=== PATIENT | male | born 1940 | race Caucasian/White ===

== ENCOUNTER 2020-06-02 11:58 | Emergency (ER) | payer MEDICARE, OTHER ==
--- OUTSIDE RECORDS SUMMARY | 2020-06-02 12:01 | XMS REPORT | Continuity of Care Document ---
:1940 Author Organization [facility] t Address [address] [place] [address] Care Team Providers Name Role Phone Radha Montero MD Attending Clinician Esvin MORENO Attending Clinician Unavailable Only, Test Attending Clinician Unavailable Killian Bradford MD Attending Clinician Problems This patient has no known problems. Allergies, Adverse Reactions, Alerts This patient has no known allergies or adverse reactions. Medications This patient has no known medications. Procedures This patient has no known procedures. Encounters Start End Encounter Admission Attending Care Care Encounter Source Date/Time Date/Time Type Type Clinicians Facility Department ID 2020-02-20 2020-02-20 Emergency Kylah, TRAUMA [id number] 13:58[facility]00 [id number] 2020-01-06 2020-01-06 Letter Kaylin Mcallister [id number] 00:00:00 00:00:00 (Out) [facility] [id number] [facility] [id number] 2020-01-05 2020-01-05 Laboratory Only, Pcp [facility] [id number] 09:27:09 09:42:09 Only Test PRIMARY [id number] CARE [id number] RAYSHAWN [id number] 2019-09-18 2019-09-19 Emergency Kaale, TRAUMA [id number] 20:29:21 01:19:00 [facility] [id number] Results This patient has no known results.
[2020-06-02 12:34] LABS: Absolute Lymphocytes (CBC) 0.7 K/uL (0.7-4.9); Basophils % 1.2 % (0-1.3); Hematocrit 42.7 % (39.6-49.0); Lymphocytes % 5.2 % (15.3-44.8); MPV 9.6 fL (7.6-11.3)
[2020-06-02 12:49] LABS: Potassium 4.4 mmol/L (3.5-5.1)
[2020-06-02] MEDS ORDERED: Ringers Lactate 1,000 ML IV ONE (12:53)
[2020-06-02 13:10] LABS: White Blood Cell Scan OK (OK)
[2020-06-02 13:11] LABS: Blood Morphology Comment NOT SEEN (NOT SEEN); Platelet Estimate ADEQ
--- NOTE | 2020-06-02 14:07 | EDPHYS ---
Physician Documentation [facility] Name: Eliseo Oro Age: 80 yrs Sex: Male : 1940 Arrival Date: 06/02/2020 Time: 12:03 Bed 26 Private MD: ED Physician Morgan Jane HPI: 06/02 13:06 This 80 yrs old Male presents to ER via EMS with complaints of Heat Exposure. 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 + generalized weakness, sweating, no syncope/chest pain/sob/abd pain. Feels better with fluids. . Onset: The symptoms/episode began/occurred just prior to arrival. Severity of symptoms: At their worst the symptoms were moderate in the emergency department the symptoms have improved. The patient has not experienced similar symptoms in the past. The patient has not recently seen a physician. Historical: - Allergies: 12:26 No Known Allergies; iw - Home Meds: 12:26 Lisinopril Oral [Active]; gabapentin oral oral [Active]; iw - PMHx: 12:26 Hypertension; neck pain; knee pain; iw - PSHx: 12:26 Knee surgery; iw - Immunization history:: Adult Immunizations not up to date. - Social history:: Smoking status: Patient/guardian denies using tobacco, the patient reports quitting approximately 5 years ago. - Family history:: not pertinent. - Hospitalizations: : No recent hospitalization is reported. ROS: 13:06 Constitutional: Negative for fever, chills, and weight loss, Eyes: Negative for injury, rn pain, redness, and discharge, Neck: Negative for injury, pain, and swelling, Cardiovascular: Negative for chest pain, palpitations, and edema, Respiratory: Negative for shortness of breath, cough, wheezing, and pleuritic chest pain, Abdomen/GI: Negative for abdominal pain, nausea, vomiting, diarrhea, and constipation, Back: Negative for injury and pain, : Negative for injury, bleeding, discharge, and swelling, MS/Extremity: Negative for injury and deformity, Skin: Negative for injury, rash, and discoloration, Neuro: Negative for headache, numbness, tingling, and seizure. Exam: 13:06 Constitutional: This is a well developed, well nourished patient who is awake, alert, rn and in no acute distress. Shirt soaked with sweat, no active diaphoresis Head/Face: Normocephalic, atraumatic. Eyes: Pupils equal round and reactive to light, extra-ocular motions intact. Lids and lashes normal. Conjunctiva and sclera are non-icteric and not injected. Cornea within normal limits. Periorbital areas with no swelling, redness, or edema. ENT: dry MM Cardiovascular: Regular rate and rhythm. No pulse deficits. Respiratory: No increased work of breathing, no retractions or nasal flaring. Abdomen/GI: soft, non-tender, no masses Skin: Warm, dry, no cyanosis MS/ Extremity: Pulses equal, no cyanosis. Neurovascular intact. Full, normal range of motion. Equal circumference. Neuro: Awake and alert, GCS 15, oriented to person, place, time, and situation. Cranial nerves II-XII grossly intact. Motor strength 5/5 in all extremities. Sensory grossly intact. Cerebellar exam normal. Vital Signs: 12:23 BP 133 / 82; Pulse 83; Resp 16; Temp 98.9; Pulse Ox 98% on R/A; Weight 104.33 kg; iw Height 5 ft. 7 in. (170.18 cm); 13:37 BP 133 / 82; Pulse 83; Resp 15; Pulse Ox 96% on R/A; zb 14:30 BP 97 / 61; Pulse 84; Resp 16; Pulse Ox 97% on R/A; zb 12:23 Body Mass Index 36.02 (104.33 kg, 170.18 cm) iw MDM: 12:05 Patient medically screened. rn 14:06 Differential Diagnosis heat exhaustion, dehydration, near syncope. Data reviewed: vital rn signs, nurses notes, lab test result(s), EKG, and as a result, I will discharge patient. Counseling: I had a detailed discussion with the patient and/or guardian regarding: the historical points, exam findings, and any diagnostic results supporting the discharge/admit diagnosis, lab results, the need for outpatient follow up, to return to the emergency department if symptoms worsen or persist or if there are any questions or concerns that arise at home. Response to treatment: the patient's symptoms have markedly improved after treatment, and as a result, I will discharge patient. Special discussion: I discussed with the patient/guardian in detail that at this point there is no indication for admission to the hospital. It is understood, however, that if the symptoms persist or worsen the patient needs to return immediately for re-evaluation. ED course: No acute abnormalities in blood or ECG, pt feels like over-did it, lack of other findings agree with that, normal neuro exam, denies pain, no ischemia on ecg, trop neg, and sable vitals with improvement of symptoms after fluids. . 06/02 12:07 Order name: CBC with Diff; Complete Time: 13:35 rn 06/02 12:07 Order name: Basic Metabolic Panel; Complete Time: 13:35 rn 06/02 12:07 Order name: CK; Complete Time: 13:35 rn 06/02 12:16 Order name: Troponin (emerg Dept Use Only); Complete Time: 13:35 rn 06/02 12:40 Order name: CBC Smear Scan; Complete Time: 13:35 EDDE 06/02 12:07 Order name: IV Start; Complete Time: 12:27 rn 06/02 12:07 Order name: EKG; Complete Time: 12:07 rn 06/02 12:07 Order name: EKG - Nurse/Tech; Complete Time: 12:19 rn Administered Medications: 12:37 Drug: Lactated Ringers Solution 1000 ml Route: IV; Rate: 500 ml/hr; Site: left iw antecubital; 15:02 Follow up: Response: No adverse reaction; IV Status: Completed infusion; IV Intake: zb 1000ml Disposition: 06/02/20 14:07 Discharged to Home. Impression: Heat fatigue, transient, Dehydration. - Condition is Stable. - Discharge Instructions: Dehydration, Adult, Heat Exhaustion Information. - Medication Reconciliation Form, Thank You Letter, Antibiotic Education, Prescription Opioid Use form. - Follow up: Private Physician; When: As needed; Reason: Recheck today's complaints, Re-evaluation by your physician. - Problem is new. - Symptoms have improved. Signatures: Dispatcher [employer] EDJustine Alarcon RN RN iw Nieto, Roman, MD MD rn Brown, JOSH Shah RN Corrections: (The following items were deleted from the chart) 15:02 14:07 06/02/2020 14:07 Discharged to Home. Impression: Heat fatigue, transient; zb Dehydration. Condition is Stable. Forms are Medication Reconciliation Form, Thank You Letter, Antibiotic Education, Prescription Opioid Use. Follow up: Private Physician; When: As needed; Reason: Recheck today's complaints, Re-evaluation by your physician. Problem is new. Symptoms have improved. rn
--- NOTE | 2020-06-02 14:07 | ER ---
Nurse's Notes [facility] Name: Eliseo Oro Age: 80 yrs Sex: Male : 1940 Arrival Date: 06/02/2020 Time: 12:03 Bed 26 Private MD: Diagnosis: Heat fatigue, transient;Dehydration Presentation: 06/02 12:05 Chief complaint: EMS states: was out working in the yard, got overheated, felt like he iw was going to pass out. Coronavirus screen: At this time, the client does not indicate any symptoms associated with coronavirus-19. Ebola Screen: Patient negative for fever greater than or equal to 101.5 degrees Fahrenheit, and additional compatible Ebola Virus Disease symptoms Patient denies exposure to infectious person. Patient denies travel to an Ebola-affected area in the 21 days before illness onset. No symptoms or risks identified at this time. 12:05 Method Of Arrival: EMS: [facility] iw 12:27 Initial Sepsis Screen: Does the patient meet any 2 criteria? No. Patient's initial iw sepsis screen is negative. Does the patient have a suspected source of infection? No. Patient's initial sepsis screen is negative. Risk Assessment: Do you want to hurt yourself or someone else? Patient reports no desire to harm self or others. Onset of symptoms was June 02, 2020. 12:27 Acuity: CAPRI 3 iw Historical: - Allergies: 12:26 No Known Allergies; iw - Home Meds: 12:26 Lisinopril Oral [Active]; gabapentin oral oral [Active]; iw - PMHx: 12:26 Hypertension; neck pain; knee pain; iw - PSHx: 12:26 Knee surgery; iw - Immunization history:: Adult Immunizations not up to date. - Social history:: Smoking status: Patient/guardian denies using tobacco, the patient reports quitting approximately 5 years ago. - Family history:: not pertinent. - Hospitalizations: : No recent hospitalization is reported. Screenin:26 Abuse screen: Denies threats or abuse. Denies injuries from another. Nutritional iw screening: No deficits noted. Tuberculosis screening: No symptoms or risk factors identified. Fall Risk IV access (20 points). Assessment: 13:08 General: Appears in no apparent distress. uncomfortable, Behavior is calm, cooperative, zb appropriate for age, Reports fatigue for 0-12 hours. Pain: Complains of pain in bilateral knees Pain does not radiate. Pain currently is 8 out of 10 on a pain scale. Quality of pain is described as burning, aching, Pain began years ago. Neuro: Level of Consciousness is awake, alert, obeys commands, Oriented to person, place, time, situation. Cardiovascular: Capillary refill < 3 seconds in bilateral fingers Patient's skin is warm and dry. Respiratory: Airway is patent Respiratory effort is even, unlabored, Respiratory pattern is regular, symmetrical. GI: Abdomen is round. : No signs and/or symptoms were reported regarding the genitourinary system. EENT: No signs and/or symptoms were reported regarding the EENT system. Derm: Skin is intact, is healthy with good turgor, Skin is dry, Skin is normal, Skin temperature is warm. Musculoskeletal: Range of motion: intact in all extremities. 13:50 Reassessment: ECP at bedside discussing care with patient. zb 14:11 Reassessment: d/c pending IV fluid completion. zb 15:01 Reassessment: IV fluids complete. d/c instructions given. gait steady and even. zb Vital Signs: 12:23 BP 133 / 82; Pulse 83; Resp 16; Temp 98.9; Pulse Ox 98% on R/A; Weight 104.33 kg; iw Height 5 ft. 7 in. (170.18 cm); 13:37 BP 133 / 82; Pulse 83; Resp 15; Pulse Ox 96% on R/A; zb 14:30 BP 97 / 61; Pulse 84; Resp 16; Pulse Ox 97% on R/A; zb 12:23 Body Mass Index 36.02 (104.33 kg, 170.18 cm) iw ED Course: 12:03 Patient arrived in ED. iw 12:05 Morgan Jane MD is Attending Physician. rn 12:26 Maintain EMS IV. Dressing intact. Good blood return noted. Site clean \T\ dry. Gauge \T\ iw site: 20 LAC. 12:27 Triage completed. iw 12:28 Justine Suresh, JOSH is Primary Nurse. iw 13:11 Patient has correct armband on for positive identification. Pulse ox on. NIBP on. zb quality assurance monitor final on. Door closed. Noise minimized. 15:01 No provider procedures requiring assistance completed. IV discontinued, intact, zb bleeding controlled, No redness/swelling at site. Pressure dressing applied. 15:02 Arm band placed on. zb Administered Medications: 12:37 Drug: Lactated Ringers Solution 1000 ml Route: IV; Rate: 500 ml/hr; Site: left iw antecubital; 15:02 Follow up: Response: No adverse reaction; IV Status: Completed infusion; IV Intake: zb 1000ml Intake: 15:02 IV: 1000ml; Total: 1000ml. zb Outcome: 14:07 Discharge ordered by . rn 15:01 Discharged to home ambulatory. zb 15:01 Condition: stable 15:01 Discharge instructions given to patient, Instructed on discharge instructions, follow up and referral plans. Demonstrated understanding of instructions, follow-up care. 15:02 Patient left the ED. zb Signatures: Justine Suresh RN RN Morgan Jane MD MD rn Brown, Zipporah, RN RN zb
[2020-06-02 15:53] VITALS: TEMP 98.9
[2020-06-02 15:56] VITALS: BP 97/61; O2SAT 97
--- NOTE | 2020-06-03 08:52 | EKG ---
Test Date: 2020-06-02 Test Time: 12:16:19 Commissary Manager: GOMEZ MEASUREMENT RESULTS: Intervals: Rate: 86 MD: 182 QRSD: 76 QT: 376 QTc: 449 [place]: P: 70 MD: 182 QRS: 56 T: 49 INTERPRETIVE STATEMENTS: Normal sinus rhythm Low voltage QRS Borderline ECG Compared to ECG 07/03/2014 11:37:16 Low QRS voltage now present Electronically Signed On 06-03-20 08:50:11 CDT by Richar Iyer
== END 2020-06-02 15:02 | disposition home or self-care (01) ==
LOC: ER 11:58
DX: E86.0 Dehydration (principal); I10 Essential (primary) hypertension; Z87.891 Personal history of nicotine dependence
CPT/HCPCS: 85025; 80048; 36415; 82550; 84484; J7120; 93005; 96360; 96361; 99284

== ENCOUNTER 2021-10-13 13:34 | Emergency (ER) | payer OTHER ==
--- OUTSIDE RECORDS SUMMARY | 2021-10-13 13:39 | XMS REPORT | Continuity of Care Document ---
:1940 Author Organization [facility] t Address [address] [place] [address] Care Team Providers Name Role Phone [facility], [facility] Primary Care Physician Unavailable AMANDA ANTUNEZ Attending Clinician Unavailable Amanda Antuenz MD Attending Clinician Vaccine, [facility] Attending Clinician Unavailable Unknown, Attending Attending Clinician Unavailable ARAVIND NOEL Attending Clinician Unavailable KATIE FOX Attending Clinician Unavailable Booker Montero MD Attending Clinician Kaylin Mcallister RN Attending Clinician Unavailable NATALIYA GREEN Attending Clinician Unavailable Only, Pcp Test Attending Clinician Unavailable Nataliya Green MD Attending Clinician Jayy Bradford MD Attending Clinician AMANDA ANTUNEZ Admitting Clinician Unavailable Payers Payer Name Policy Type Policy Number Effective Date Expiration Date S murray MEDICARE PART A \\T\\ [id number] 2007 B 00:00:00 [facility] [id number] 2007 MEDICARE SUPPLEMENT 00:00:00 Problems Condition Condition Condition Status Onset Resolution Last Treating Co mments Source Name Details Category Date Date Treatment Clinician Date Abdominal Abdominal Disease Active Overview: Univers cramping cramping -06 Formattin ity of 00:00: g of this [place] 00 note Medical might be Branch different from the original. Added automatic ally from request for surgery [id number] Stool Stool Disease Active Overview: Univer s guaiac guaiac 06-01 Formattin ity of positive positive 00:00: g of this [place] 00 note Medical might be Branch different from the original. Added automatic ally from request for surgery [id number] Tubular Tubular Disease Active Overview: Univ ers adenoma of adenoma of 06-01 Formattin ity of colon colon 00:00: g of this [place] 00 note Medical might be Branch different from the original. Added automatic ally from request for surgery [id number] Alternatin Alternatin Disease Active Overview : Univers g g 06-01 Formattin ity of constipati constipati 00:00: g of this [place] on and on and 00 note Medical diarrhea diarrhea might be Bran ch different from the original. Added automatic ally from request for surgery [id number] Black Black Disease Active Overview: Univer s tarry tarry 06-01 Formattin ity of stools stools 00:00: g of this [place] 00 note Medical might be Branch different from the original. Added automatic ally from request for surgery [id number] Incontinen Incontinen Disease Active Overview : Univers ce of ce of 06-01 Formattin ity of feces, feces, 00:00: g of this [place] unspecifie unspecifie 00 note Me dical d fecal d fecal might be Branch incontinen incontinen different ce type ce type from the original. Added automatic ally from request for surgery [id number] Morbid Morbid Disease Active Univers obesity obesity 2-01 ity of with body [place] body 00:[place] mass index mass index 00 Me dical of of Branch 40.0-49.9 40.0-49.9 Morbid Morbid Disease Active Univers obesity obesity 2-01 ity of with body with body 00:[place] mass index mass index 00 Me dical of 50 or of 50 or Branch higher higher Atypical Atypical Disease Active Unive rs chest pain chest pain 8-19 it y of 00:00: [place] 00 Medical Branch HARDY HARDY Disease Active Univers (dyspnea (dyspnea 7-14 ity of on on 00:00: [place] exertion) exertion) 00 Medi conor Branch Essential Essential Disease Active Uni vers hypertensi hypertensi 7-13 it y of on on 00:00: [place] 00 Medical Branch 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 Surgery on left hand Obesity Obesity Disease Active Overview: Univ ers 4-23 Formattin ity of 00:00: g of this [place] 00 note Medical might be Branch different from the original. 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 knees Coronary Coronary Disease Active Overview: Un darell atheroscle atheroscle Formattin ity of rosis rosis g of this [place] note Medical might be Branch different from the original. ?"light heart attack" 20 yrs [id number] Diagnosis Term Pres[facility] Program Director Utility Allergic Allergic Disease Active Overview: Un darell rhinitis rhinitis Formattin ity of g of this [place] note Medical might be Branch different from the original. ICD10 Diagnosis Term Pres[facility] Program Director Utility Allergies, Adverse Reactions, Alerts Allergy Allergy Status Severity Reaction(s) Onset Inactive Treating Comm ents Source Name Type Date Date Clinician NO KNOWN Drug Active Univers ALLERGIE Class ity of S [facility] Social History Social Habit Start Date Stop Date Quantity Comments Source History [facility] o f Alcohol Frequency [facility] edical Branch History [facility] o f Alcohol Std Drinks [facility] History [facility] o f Alcohol Binge [place] Medic al Branch Exposure to Not sure University of SARS-CoV-2 (event) [facility] Alcohol intake 2021-03-06 2021-03-06 .14 /d University of 00:00:00 00:00:00 [facility] Alcohol Comment 2016-03-27 2016-03-27 Occasional Universit y of 00:00:00 00:00:00 Drinker [facility] Cigarettes smoked 2015-09-08 2015-09-08 Univers ity of current (pack per 00:00:00 00:00:00 ) - Reported Branch Cigarette 2015-09-08 2015-09-08 University of pack-years 00:00:00 00:00:00 [facility] Tobacco use and 2015-09-08 2015-09-08 Never used Universit y of exposure 00:00:00 00:00:00 [facility] History of tobacco 2013-09-07 Smoker Univer sity of use 00:00:00 [facility] Sex [birth year] At [birth year] Universit y of 00:00:00 00:00:00 [facility] Smoking Status Start Date Stop Date Source Former smoker 2015-09-08 00:00:00 2015-09-08 00:00:00 Universi ty of [facility] Medications Ordered Filled Start Stop Current Ordering Indication Dosage Frequency Signature Comments Components Source Medication Medication Date Date Medication? Clinician (SIG) Name Name iopamidol 2021- No [id number] 100mL 100 mL, Univers (ISOVUE 03-06 Intravenou ity o f 370-500 mL) 15:45: 15:45 s, ONCE, 1 [place] injection 00 :00 dose, On Medica l 100 mL 03/06/21 Branch at 0945, Routine proCHLORper 2021- No 10mg 10 mg, IV Univers azine 03-06 Piggyback, ity of (COMPAZINE) 14:30: 14:00 [place]CE[place] 1 [place] 10 mg in 00 :00 dose, On Medical NaCl 0.9% 03/06/21 Bran ch (NS) at 0830, piggyback 50 mL ketorolac 2021- No 15mg 15 mg, Unive rs tromethamin 03-06 Slow IV ity of e (TORADOL) 14:30: 14:30 Push, [place] injection 00 :00 ONCE, 1 Medical 15 mg dose, On Branch 1/9/22 at 0830, [place] morpHINE No 4mg 4 mg, Slow Un darell injection 4 03-06 IV Push, ity of mg 14:30: 13:41 ONCE, 1 [place] 00 :00 dose, On Medical 03/06/21 Branch at 0830, STAT cyclobenzap Yes [id number] 10mg Take 1 Univers rine 10 mg 1-09 tablet by ity of tablet 00:00: mouth 3 [place] 00 (three) Medical times Branch daily. HYDROcodone 2021- No [id number] 1{tbl} Take 1-2 Univers -acetaminop 03-06-17 tablets by i ty of hen 5-325 00:00: 05:59 mouth [place] mg tablet 00 :00 every 6 Medical (six) Branch hours as needed for Pain (scale 1-3) for up to 7 days. Indication s: acute pain predniSONE 2021- No [id number] 60mg Take 3 Univers 20 mg 03-06-15 tablets by ity of tablet 00:00: 05:59 mouth [place] 00 :00 every Medical morning Branch for 5 days. HYDROcodone 2019-02 No 1{tbl} 1 tablet, Univers -acetaminop 2-26 12-25 Oral, ity of hen (NORCO 00:30: 23:43 ONCE, 1 [place] as 5) 5-325 mg 00 :00 dose, Fri Med ical tablet 1 02/20/20 Branch tablet at 1830, [place] ceFAZolin 2019-02- No 1000mg 1,000 mg, Univers (ANCEF) 2-25 12-25 IV ity of 1,000 mg in 22:00: 22:06 Piggyback, [place] NaCl 0.9% 00 :00 ONCE, 1 Medical (NS) 50 mL dose, Fri Bran ch MINI-BAG 02/20/20 at 1600, 50 mL
Reas on for Anti-Infec tive: Empiric Therapy for Suspected Infection< br>Empiric Therapy Site: Skin / Soft tissue
Duration of therapy: 72 hours doxycycline 2019-02- No [id number] 100mg Take 1 Univers hyclate 100 04-22- capsule by i ty of mg capsule 00:00: 05:59 mouth 2 [place] as 00 :00 (two) Medical times Branch daily for 10 days. traMADol 2020-0 2020- No 50mg 50 mg, Univer s (ULTRAM) 09-18 07-24 Oral, ity of tablet 50 06:45: 05:58 ONCE, 1 [place] mg 00 :00 dose, Fri Medical 09/19/19 at Branch 0145, [place] predniSONE 2020-0 2020- No 40mg 40 mg, Univ ers (DELTASONE) 09-18 07-24 Oral, ity of tablet 40 06:45: 05:58 ONCE, 1 [place] mg 00 :00 dose, Fri Medical 09/19/19 at Branch 0145, [place] lidocaine 5 2020-0 Yes [id number] Apply one Univers % (700 7-24 patch to ity of mg/patch) 00:00: most [place] patch 00 painful Medical area for Branch 12 hours a day, as needed for pain. PHARMACIST : dispense one box lidocaine 5 2020-0 Yes [id number] Apply one Univers % (700 7-24 patch to ity of mg/patch) 00:00: most [place] patch 00 painful Medical area for Branch 12 hours a day, as needed for pain. PHARMACIST : dispense one box lidocaine 5 2020-0 Yes [id number] Apply one Univers % (700 7-24 patch to ity of mg/patch) 00:00: most [place] patch 00 painful Medical area for Branch 12 hours a day, as needed for pain. PHARMACIST : dispense one box lidocaine 5 2020-0 Yes [id number] Apply one Univers % (700 7-24 patch to ity of mg/patch) 00:00: most [place] patch 00 painful Medical area for Branch 12 hours a day, as needed for pain. PHARMACIST : dispense one box lidocaine 5 2020-0 Yes [id number] Apply one Univers % (700 7-24 patch to ity of mg/patch) 00:00: most [place] patch 00 painful Medical area for Branch 12 hours a day, as needed for pain. PHARMACIST : dispense one box lidocaine 5 2020-0 Yes [id number] Apply one Univers % (700 7-24 patch to ity of mg/patch) 00:00: most [place] patch 00 painful Medical area for Branch 12 hours a day, as needed for pain. PHARMACIST : dispense one box predniSONE 2020-0 2020- No [id number] 40mg Take 2 Univers 20 mg 09-18 tablets by ity of tablet 00:00: 04:59 mouth [place] 00 :00 every Medical morning Branch for 7 days. traMADol 50 2020-0 2020- No [id number] 50mg Take 1 Uni vers mg tablet 09-18 tablet by ity of 00:00: 04:59 mouth [place] 00 :00 every 6 Medical (six) Branch hours as needed (pain) for up to 7 days. Indication s: acute pain nebivolol 2017-02 Yes 2.5mg Take 1 Unive rs 2.5 mg 0-15 tablet by ity of tablet 00:00: mouth [place] 00 daily. Medical Branch nebivolol 2017-02 Yes 2.5mg Take 1 Unive rs 2.5 mg 0-15 tablet by ity of tablet 00:00: mouth [place] 00 daily. Medical Branch nebivolol 2017-02 Yes 2.5mg Take 1 Unive rs 2.5 mg 0-15 tablet by ity of tablet 00:00: mouth [place] 00 daily. Medical Branch nebivolol 2017-02 Yes 2.5mg Take 1 Unive rs 2.5 mg 0-15 tablet by ity of tablet 00:00: mouth [place] 00 daily. Medical Branch nebivolol 2017-02 Yes 2.5mg Take 1 Unive rs 2.5 mg 0-15 tablet by ity of tablet 00:00: mouth [place] 00 daily. Medical Branch nebivolol 2017-02 Yes 2.5mg Take 1 Unive rs 2.5 mg 0-15 tablet by ity of tablet 00:00: mouth [place] 00 daily. Medical Branch clonidine Yes .1mg Take 0.1 Univ ers HCl 9-28 mg by ity of (CLONIDINE 02:37: mouth as [place] as ORAL) 04 needed. Medical Branch clonidine Yes .1mg Take 0.1 Univ ers HCl 9-28 mg by ity of (CLONIDINE 02:37: mouth as [place] ORAL) 04 needed. Medical Branch clonidine Yes .1mg Take 0.1 Univ ers HCl 9-28 mg by ity of (CLONIDINE 02:37: mouth as [place] ORAL) 04 needed. Medical Branch clonidine Yes .1mg Take 0.1 Univ ers HCl 9-28 mg by ity of (CLONIDINE 02:37: mouth as [place] ORAL) 04 needed. Medical Branch clonidine Yes .1mg Take 0.1 Univ ers HCl 9-27 mg by ity of (CLONIDINE 21:37: mouth as [place] ORAL) 04 needed. Medical Branch clonidine Yes .1mg Take 0.1 Univ ers HCl 9-27 mg by ity of (CLONIDINE 21:37: mouth as [place] as ORAL) 04 needed. [facility] Branch ALPRAZOLAM Yes Take by Univ ers (XANAX 9-27 mouth. ity of ORAL) 13:58: [address] ALPRAZOLAM Yes Take by Univ ers (XANAX 9-27 mouth. ity of ORAL) 13:58: [address] ALPRAZOLAM Yes Take by Univ ers (XANAX 9-27 mouth. ity of ORAL) 13:58: [place] [facility] ALPRAZOLAM Yes Take by Univ ers (XANAX 9-27 mouth. ity of ORAL) 13:58: [address] ALPRAZOLAM Yes Take by Univ ers (XANAX 9-27 mouth. ity of ORAL) 08:58: [place] [facility] ALPRAZOLAM Yes Take by Univ ers (XANAX 9-27 mouth. ity of ORAL) 08:58: [address] lisinopril 2015-0 Yes 20mg Take 1 Unive rs (PRINIVIL) 8-15 tablet by ity of 20 mg 00:00: mouth 2 [place] tablet 00 (two) Medical times Branch daily. lisinopril 2015-0 Yes 20mg Take 1 Unive rs (PRINIVIL) 8-15 tablet by ity of 20 mg 00:00: mouth 2 [place] tablet 00 (two) Medical times Branch daily. lisinopril 2015-0 Yes 20mg Take 1 Unive rs (PRINIVIL) 8-15 tablet by ity of 20 mg 00:00: mouth 2 [place] tablet 00 (two) Medical times Branch daily. lisinopril 2016-0 Yes 20mg Take 1 Unive rs (PRINIVIL) 8-15 tablet by ity of 20 mg 00:00: mouth 2 [place] tablet 00 (two) Medical times Branch daily. lisinopril 2016-0 Yes 20mg Take 1 Unive rs (PRINIVIL) 8-15 tablet by ity of 20 mg 00:00: mouth 2 [place] tablet 00 (two) Medical times Branch daily. lisinopril 2016-0 Yes 20mg Take 1 Unive rs (PRINIVIL) 8-15 tablet by ity of 20 mg 00:00: mouth 2 [place] tablet 00 (two) Medical times Branch daily. Immunizations Ordered Filled Immunization Date Status Comments [facility] e Immunization Name Name SARS-COV-2 COVID-19 2021-02-21 Completed Unive rsity of PFIZER VACCINE 00:00:00 [facility] SARS-COV-2 COVID-19 2021-02-21 Completed Unive rsity of PFIZER VACCINE 00:00:00 [facility] Pfizer COVID-19 Pfizer COVID-19 2021-02-21 Completed Vaccine Vaccine 00:00:00 SARS-COV-2 COVID-19 2020-04-28 Completed Unive rsity of PFIZER VACCINE 00:00:00 [facility] SARS-COV-2 COVID-19 2020-04-28 Completed Unive rsity of PFIZER VACCINE 00:00:00 [facility] Pfizer COVID-19 Pfizer COVID-19 2020-04-28 Completed Vaccine Vaccine 00:00:00 SARS-COV-2 COVID-19 2020-04-06 Completed Unive rsity of PFIZER VACCINE 00:00:00 [facility] SARS-COV-2 COVID-19 2020-04-06 Completed Unive rsity of PFIZER VACCINE 00:00:00 [facility] Pfizer COVID-19 Pfizer COVID-19 2020-04-06 Completed Vaccine Vaccine 00:00:00 Pneumococcal 7 2007-06-24 Completed University of Conjugate, PCV7 00:00:00 [place] Med ical (Prevnar7) Branch Pneumococcal 7 2007-06-24 Completed University of Conjugate, PCV7 00:00:00 [place] Med ical (Prevnar7) Branch Pneumococcal 7 2007-06-24 Completed University of Conjugate, PCV7 00:00:00 [place] Med ical (Prevnar7) Branch Pneumococcal 7 2007-06-24 Completed University of Conjugate, PCV7 00:00:00 [place] Med ical (Prevnar7) Branch Pneumococcal 7 2007-06-24 Completed University of Conjugate, PCV7 00:00:00 [place] Med ical (Prevnar7) Branch Pneumococcal 7 2007-06-24 Completed University of Conjugate, PCV7 00:00:00 [place] Med ical (Prevnar7) Branch Vital Signs Vital Name Observation Time Observation Value Comments Source Systolic blood 2021-03-06 14:00:00 142 mm[Hg] Univer sity of pressure [place] [facility] Diastolic blood 2021-03-06 14:00:00 76 mm[Hg] Unive rsity of pressure [place] [facility] Heart rate 2021-03-06 14:00:00 68 /min Universi ty of [place] [facility] Body temperature 2021-03-06 14:00:00 36.33 Rachael Univ ersity of [place] [facility] Respiratory rate 2021-03-06 14:00:00 18 /min Univ ersity of [place] [facility] Oxygen saturation in 2021-03-06 14:00:00 98 /min University of Arterial blood by [place] [employer] conor Pulse oximetry Branch Body weight 2021-03-06 13:14:00 113.853 kg Universi ty of [place] [facility] BMI 2021-03-06 13:14:00 39.31 kg/m2 Universi ty of [place] [facility] Systolic blood 2020-02-21 01:49:13 144 mm[Hg] Univer sity of pressure [place] [facility] Diastolic blood 2020-02-21 01:49:13 77 mm[Hg] Unive rsity of pressure [place] [facility] Heart rate 2020-02-21 01:49:13 69 /min Universi ty of [place] [facility] Body temperature 2020-02-21 01:49:13 35.72 Rachael Univ ersity of [place] [facility] Respiratory rate 2020-02-21 01:49:13 18 /min Univ ersity of [place] [facility] Oxygen saturation in 2020-02-21 01:49:13 96 /min University of Arterial blood by [facility] conor Pulse oximetry Branch Body weight 2020-02-20 19:56:00 113.399 kg Universi ty of [place] [facility] BMI 2020-02-20 19:56:00 39.16 kg/m2 Universi ty of [place] [facility] Systolic blood 2020-02-21 01:49:13 144 mm[Hg] Univer sity of pressure [place] [facility] Diastolic blood 2020-02-21 01:49:13 77 mm[Hg] Unive rsity of pressure [place] [facility] Heart rate 2020-02-21 01:49:13 69 /min Universi ty of [place] [facility] Body temperature 2020-02-21 01:49:13 35.72 Rachael Univ ersity of [place] [facility] Respiratory rate 2020-02-21 01:49:13 18 /min Univ ersity of [place] [facility] Oxygen saturation in 2020-02-21 01:49:13 96 /min University of Arterial blood by [facility] [place] Pulse oximetry Branch Body weight 2020-02-20 19:56:00 113.399 kg Universi ty of [place] [facility] BMI 2020-02-20 19:56:00 39.16 kg/m2 Universi ty of [place] [facility] Systolic blood 2019-09-19 06:16:00 154 mm[Hg] Univer sity of pressure [place] [facility] Diastolic blood 2019-09-19 06:16:00 80 mm[Hg] Unive rsity of pressure [place] [facility] Heart rate 2019-09-19 06:16:00 70 /min Universi ty of [place] [facility] Respiratory rate 2019-09-19 06:16:00 16 /min Univ ersity of [place] [facility] Oxygen saturation in 2019-09-19 06:16:00 97 /min University of Arterial blood by [facility] [place] Pulse oximetry Branch Body temperature 2019-09-19 01:28:00 37.06 Rachael Univ ersity of [place] [facility] Body weight 2019-09-19 01:28:00 108.863 kg Universi ty of [place] [facility] BMI 2019-09-19 01:28:00 37.59 kg/m2 Universi ty of [place] [facility] Systolic blood 2019-09-19 06:16:00 154 mm[Hg] Univer sity of pressure [place] [facility] Diastolic blood 2019-09-19 06:16:00 80 mm[Hg] Unive rsity of pressure [place] [facility] Heart rate 2019-09-19 06:16:00 70 /min Universi ty of [place] [facility] Respiratory rate 2019-09-19 06:16:00 16 /min Univ ersity of [place] [facility] Oxygen saturation in 2019-09-19 06:16:00 97 /min University of Arterial blood by [facility] [place] Pulse oximetry Branch Body temperature 2019-09-19 01:28:00 37.06 Rachael Univ ersity of [place] [facility] Body weight 2019-09-19 01:28:00 108.863 kg Universi ty of [place] [facility] BMI 2019-09-19 01:28:00 37.59 kg/m2 Universi ty of [place] [facility] Procedures Procedure Date / Time Performing Clinician Source Performed CT ABDOMEN PELVIS W 2021-03-06 14:34:05 Amanda Antunez [facility] CONTRAST [facility] URINALYSIS 2021-03-06 14:18:00 Amanda Antunez [facility] LIPASE 2021-03-06 13:43:00 Amanda Antunez [facility] COMP. METABOLIC PANEL 2021-03-06 13:43:00 Aamnda Antunez [facility] ([id number]) [facility] CBC WITH DIFF 2021-03-06 13:43:00 Amanda Antunez [facility] SARS-COV-2 COVID-19 2021-02-21 15:21:00 [facility],IM Name [facility] (PFIZER) CBC WITH DIFF 2020-02-20 23:48:00 Booker Montero [facility] US LOWER EXTREMITY VEIN 2020-02-20 22:07:03 Booker Montero [facility] WITH COMPRESSION LEFT Medical Br anch (ONLY FOR RULE OUT DVT) BASIC METABOLIC PANEL 2020-02-20 21:25:00 Booker Montero [facility] (NA, K, CL, CO2, [facility] Branch GLUCOSE, BUN, CREATININE, CA) XR FOOT 3+ VW LEFT 2020-02-20 21:08:03 Booker Mnotero [facility] CBC WITH DIFF 2019-09-19 03:33:00 Ian Huggins [facility] TROPONIN I 2019-09-19 03:32:00 Ian Huggins [facility] COMP. METABOLIC PANEL 2019-09-19 03:32:00 Ian Huggins [facility] ([id number]) [facility] N-TERMINAL PRO-BNP 2019-09-19 03:32:00 Ian Huggins [facility] XR CHEST 2 VW 2019-09-19 02:13:08 Ian Huggins [facility] EKG-12 LEAD 2019-09-19 01:45:35 Ian Huggins [facility] Encounters Start End Encounter Admission Attending Care Care Encounter Source Date/Time Date/Time Type Type Clinicians Facility Department ID 2020-12-25 Emergency [facility] [id number] Univers 13:08:32 ity of [facility] 2020-12-24 Emergency [facility] [id number] Univers 08:32:25 ity of [facility] 2021-03-06 2021-03-06 Emergency X TULIO, [facility] ERT [id number] Univers 07:16:00 09:29:00 AMANDA ity of [facility] 2021-03-06 2021-03-06 Emergency Antunez, [place] [id number] Univers 07:16:00 09:29:00 Amanda CENTER [id number] ity of [id number] [place] [id number] [facility] 014 Branch 2021-02-21 2021-02-21 Imm/Inj Vaccine, [facility] [id number] Univers 09:40:00 09:50:00 Visit Unknown, Attending [place] [id number] ity of PEDIAT[place]IC [id number] [id number] [facility] 332 Branch 2021-02-21 2021-02-21 Outpatient R [facility] [id number] Univers 09:40:00 09:40:00 [id number] ity [facility] 2021-02-21 2021-02-21 Outpatient Dusty NOEL, [facility] [id number] Univers 09:40:00 09:27:25 ARAVIND [facility] 2021-02-21 2021-02-21 Outpatient GCCOVIDV GCCOVID[facility] [id number] GCCOVID 00:00:00 00:00:00 V 2020-04-28 2020-04-28 Outpatient Dusty FOX, [facility] [id number] Univers 09:00:00 09:00:00 KATIE ity [facility] 2020-04-28 2020-04-28 Outpatient GCCOVIDV GCCOVIDV [id number] GCCOVID 00:00:00 00:00:00 V 2020-04-06 2020-04-06 Outpatient [facility] [id number] Univers 08:50:00 08:50:00 [id number] ity of [facility] 2020-04-06 2020-04-06 Outpatient GCCOVIDV GCCOVIDV [id number] GCCOVID 00:00:00 00:00:00 V 2020-02-20 2020-02-20 Emergency Kylah, [place] [id number] 13:58:00 19:58:00 Booker E CENTER [id number] 2020-02-20 2020-02-20 Emergency Kylah, TRAUMA [id number] Univers 13:58:00 19:58:00 Booker E CENTER [id number] ity [facility].[place] [id number] [address] 2020-01-06 2020-01-06 Letter Kaylin Mcallister [id number] Univers 00:00:00 00:00:00 (Out) MYA [id number] it y of [facility] [id number] [place] as [id number] [address] 2020-01-06 2020-01-06 Letter Kaylin Mcallister [id number] 00:00:00 00:00:00 (Out) MYA [id number] [facility] [id number] 2020-01-05 2020-01-05 Outpatient R [facility] [id number] Univers 09:45:00 09:45:00 [id number] ity [facility] 2020-01-05 2020-01-05 Outpatient R JAZMIN [facility] [id number] Univers 09:45:00 09:45:00 NATALIYA ity [facility] 2020-01-05 2020-01-05 Laboratory Only, Pcp [facility] [id number] 09:27:09 09:42:09 Only Test PRIMARY 350.1.13.10 CARE 4.2.7.2.686 PAVILLION [id number] 2020-01-05 2020-01-05 Laboratory Only, Pcp Test [facility] 1.2.840. 114 [id number] Univers 09:27:09 09:42:09 Only Nataliya Green PRIMARY 350.1.13.10 [place] [id number] Oh dical [address] Branch 2019-09-18 2019-09-19 Emergency [place], TRAUMA 1.2.630.053 [id number] 20:29:21 01:19:00 [facility] 350.1.13.10 4.2.7.2.686 [id number] [id number] 2019-09-18 2019-09-19 Emergency [place], TRAUMA 1.2.212.409 [id number] Univers 20:29:21 01:19:00 [facility] 350.1.13.10 [id number] [place] [address] Branch Results Test Description Test Time Test Comments Results Result Comments Source COMP. METABOLIC PANEL (50548) 2021-03-06 14:06:49 Test Item Value Reference Range Interpretation Comme nts NA (test code = 3241996501) 137 mmol/L 135-145 K (test code = 3103168865) 4.8 mmol/L 3.5-5.0 CL (test code = 7616129137) 106 mmol/L 98-108 CO2 TOTAL (test code = 4887578771) 26 mmol/L 23-31 AGAP (test code = 0973475155) 2-16 BUN (test code = 2036649125) 20 mg/dL 7-23 GLUCOSE (test code = 8828819156) 132 mg/dL 70-110 H CREATININE (test code = 1.26 mg/dL 0.60-1.25 H 2432363454) TOTAL BILI (test code = 0.6 mg/dL 0.1-1.8 5878287271) CALCIUM (test code = 7150866306) 8.4 mg/dL 8.6-10.6 L T PROTEIN (test code = 6558622861) 6.3 g/dL 6.3-8.2 ALBUMIN (test code = 3562623315) 3.7 g/dL 3.5-5.0 ALK PHOS (test code = 0762884327) 83 U/L 34-122 ALTv (test code = 1742-6) 17 U/L 5-50 AST(SGOT) (test code = 4305674716) 24 U/L 13-40 eGFR (test code = 0822923495) mL/min/1.73m2 QUINTON (test code = QUINTON) Association of Glomerular Filtration Rate (GFR) and Staging of Kidney Disease* + +-------- + ------+| GFR (mL/min/1.73 m2) ?| With Kidney Damage ?| ?Without Kidney Damage+ +-- + +| ?>90 ?| ?Stage one ?| ? Normal ?+ +------- + -------+| ?60-89 ?| ?Stage two ?| ? Decreased GFR ? + +-------- + ------+| ?30-59 ?| ?Stage three ?| ? Stage three ? + +-------- + ------+| ?15-29 ?| ?Stage four ? | ? Stage four ?+ +------- + -------+| ?<15 (or dialysis) ? ?| ?Stage five ? | ? Stage five ?+ +------- + -------+ *Each stage assumes the associated GFR level has been in effect for at least three months. ?Stages 1 to 5, with or without kidney disease, indicate chronic kidney disease. Notes: Determination of stages one and two (with eGFR >59mL/min/1.73 m2) requires estimation of kidney damage for at least three months as defined by structural or functional abnormalities of the kidney, manifested by either:Pathological abnormalities or Markers of kidney damage (including abnormalities in the composition of the blood or urine or abnormalities in imaging tests). Lab Interpretation (test code = Abnormal 22234-6) [facility]06[facility]49 Test Item Value Reference Range Interpretation Comments LIPASE (test code = 0611785721) 63 U/L 0-220 Lab Interpretation (test code = Normal 85957-9) [facility] WITH [id number] 14:00:48 Test Item Value Reference Range Interpretation Comments WBC (test code = See_Comment [Automated 2590-2) message] The sy stem which generated this result transmitted reference range : 4.20 - 10.70 10*3/?L. The reference range was not used to interpret this result as normal/abnormal . RBC (test code = See_Comment [Automated 789-8) message] The sy stem which generated this result transmitted reference range : 4.26 - 5.52 10*6/?L. The reference range was not used to interpret this result as normal/abnormal . HGB (test code = 13.6 g/dL 12.2-16.4 718-7) HCT (test code = 41.5 % 38.4-49.3 4544-3) MCV (test code = 89.4 fL 81.7-95.6 787-2) MCH (test code = 29.3 pg 26.1-32.7 785-6) MCHC (test code = 32.8 g/dL 31.2-35.0 786-4) RDW-SD (test code = 46.9 fL 38.5-51.6 54258-4) RDW-CV (test code = 14.4 % 12.1-15.4 788-0) PLT (test code = See_Comment [Automated 777-3) message] The sy stem which generated this result transmitted reference range : 150 - 328 10*3/ ?L. The reference r tomasa was not used to interpret this result as normal/abnormal . MPV (test code = 10.9 fL 9.8-13.0 39303-2) NRBC/100 WBC (test See_Comment [Automat ed code = 5933456060) message] The system which generated this result transmitted reference range : 0.0 - 10.0 /100 WBCs. The refer ence range was not u sed to interpret th is result as normal/abnormal . NRBC x10^3 (test code <0.01 See_Comment [Auto mated = 7980457009) message] The s ystem which generated this result transmitted reference range : 10*3/?L. The reference range was not used to interpret this result as normal/abnormal . GRAN MAT (NEUT) % 77.8 % (test code = 770-8) IMM GRAN % (test code 0.40 % = 3314144654) LYMPH % (test code = 12.0 % 736-9) MONO % (test code = 6.9 % 5905-5) EOS % (test code = 2.4 % 713-8) BASO % (test code = 0.5 % 706-2) GRAN MAT x10^3(ANC) 5.71 10*3/uL 1.99-6.95 (test code = 1930702873) IMM GRAN x10^3 (test 0.03 10*3/uL 0.00-0.06 code = 4358222854) LYMPH x10^3 (test code 0.88 10*3/uL 1.09-3.23 L = 731-0) MONO x10^3 (test code 0.51 10*3/uL 0.36-1.02 = 742-7) EOS x10^3 (test code = 0.18 10*3/uL 0.06-0.53 711-2) BASO x10^3 (test code 0.04 10*3/uL 0.01-0.09 = 704-7) Lab Interpretation Abnormal (test code = 16664-0) [facility] WITH [id number] 00:06:00 Test Item Value Reference Range Interpretation Comments WBC (test code = See_Comment [Automated message] 6690-2) The system [employer] generated this result transmitted ref erence range: 4.20 - 1 0.70 10*3/?L. The re ference range was not u sed to interpret this result as normal/abnor mal. RBC (test code = See_Comment [Automated message] 789-8) The system [employer] generated this result transmitted ref erence range: 4.26 - 5 .52 10*6/?L. The re ference range was not u sed to interpret this result as normal/abnor mal. HGB (test code = 13.9 g/dL 12.2-16.4 718-7) HCT (test code = 43.6 % 38.4-49.3 4544-3) MCV (test code = 92.6 fL 81.7-95.6 787-2) MCH (test code = 29.5 pg 26.1-32.7 785-6) MCHC (test code = 31.9 g/dL 31.2-35 786-4) RDW-SD (test code 48.1 fL 38.5-51.6 = 22510-1) RDW-CV (test code 14.1 % 12.1-15.4 = 788-0) PLT (test code = See_Comment [Automated message] 777-3) The system whic h generated this result transmitted ref erence range: 150 - 32 8 10*3/?L. The re ference range was not u sed to interpret this result as normal/abnor mal. MPV (test code = 10.9 fL 9.8-13 82068-7) NRBC/100 WBC (test See_Comment [Automat ed message] code = 8116146256) The syste m which generated this result transmitted ref erence range: 0.0 - 10 .0 /100 WBCs. The refer ence range was not u sed to interpret this result as normal/abnor mal. NRBC x10^3 (test <0.01 See_Comment [Automated message] code = 8180926748) The syste m which generated this result transmitted ref erence range: 10*3/?L. The reference range was not used to interpr et this result as normal/abnormal . GRAN MAT (NEUT) % 70.1 % (test code = 770-8) IMM GRAN % (test 0.40 % code = 0949508203) LYMPH % (test code 15.7 % = 736-9) MONO % (test code 8.8 % = 5905-5) EOS % (test code = 4.0 % 713-8) BASO % (test code 1.0 % = 706-2) GRAN MAT 6.45 10*3/uL 1.99-6.95 x10^3(ANC) (test code = 2228208133) IMM GRAN x10^3 0.04 10*3/uL 0-0.06 (test code = 7613353111) LYMPH x10^3 (test 1.44 10*3/uL 1.09-3.23 code = 731-0) MONO x10^3 (test 0.81 10*3/uL 0.36-1.02 code = 742-7) EOS x10^3 (test 0.37 10*3/uL 0.06-0.53 code = 711-2) BASO x10^3 (test 0.09 10*3/uL 0.01-0.09 code = 704-7) [facility] WITH COMPRESSION LEFT (ONLY FOR RULE OUT DVT)2020-02-20 23:29:22No evidence of deep venous thrombosis in the left lower extremity. Preliminary Report Dictated by Resident: Karoline Velazquez MD., have reviewed this study and agree with theabovereport.EXAM: US LOWER EXTREMITY VEIN WITH COMPRESSION LEFT (ONLY FOR RULE OUT DVT) HISTORY: 79 years-old Male with swelling and pain left lower leg and foot TECHNIQUE: Survey ultrasound imaging of thedeep venous system of leftlower extremity was performed including color and spectral Dopplerevaluation with medicare sales representative images obtained. Segmental venouscompression and calf vein augmentation were performed. COMPARISON: None FINDINGS: Left Lower Extremity: Common femoral vein: Patent without thrombus. Normal phasicity is indirectevidence of central patency.Cephalad greater saphenous vein: Patent wi thout thrombus.Femoral vein: Patent without thrombus.Popliteal vein: Patent without thrombus. Normalresponse to augmentation. [facility] [[email or web address]], Radiant Results Inft User - 02/20/2020 5:30 PM CSTEXAM: US LOWER EXTREMITY VEIN WITH COMPRESSION LEFT (ONLY FOR RULE OUT DVT)HISTORY: 79 years -old Male with swelling and pain left lower leg and foot TECHNIQUE: Survey ultrasound imaging of the deep venous system of leftlower extremity was performed including color and spectral Dopplerevaluation with medicare sales representative images obtained. Segmental venouscompression and calf vein augmentation were performed.COMPARISON: NoneFIN DINGS:Left Lower Extremity: Common femoral vein: Patent without thrombus. Normal phasicity is indirectevidence of central patency.Cephalad greater saphenous vein: Patent without thrombus.Femoral vein: Patent without thrombus.Popliteal vein: Patent without thrombus. Normal response to augmentation.IMPRESSIONNo evidence of deep venous thrombosis in the left lower extremity. Preliminary Report Dictated by Resident: Karoline Rachel MD., have reviewed this study and agree with theabove report.[facility] FO[facility]+ VW [id number] 23:16:16 Soft tissue swelling about the forefoot without underlying acute bonyabnormality. Preliminary Report Dictated by Resident: Ali MorGerman Hermosillo MD., have reviewed this study and agree with the abovereport.EXAM: XR FOOT 3+ VW LEFT HISTORY: 79 years-old Male with swelling, pain. infection? COMPARISON: None. FINDINGS: Radiographs of the left foot demonstrate soft tissue swelling about theforefoot without underlying bony erosions. No acute fractures ordislocations. Dorsal and plantar calcaneal enthesopathy. An os navicular isseen. Joint spaces are preserved. Alignment is within normal limits. [facility], Radiant Results Inft User - 02/20/2020 5:17 PM CSTEXAM: XR FOOT 3+ VW LEFTHISTORY: 79 years-old Male with swelling, pain. infection? COMPARISON: None.FINDINGS: Radiographs of the left foot demonstrate soft tissue swelling about theforefoot without underlying bony erosions. No acute fractures ordislocations. Dorsal and plantar calcaneal enthesopathy. An os navicular isseen. Joint spaces are preserved. Alignment is within normal limits. IMPRESSIONSoft tissue swelling about the forefoot without underlying acute bonyabnormality.Preliminary Report Dictated by Resident: German De La Rosa MD., have reviewed this study and agree with the abovereport.[facility] MET[facility] (NA, K, CL, CO2, GLUCOSE, BUN, CREATININE, CA)2020-02-20 21:47:00 Test Item Value Reference Range Interpretation Comments NA (test code = 137 mmol/L 135-145 4072744530) K (test code = 4.1 mmol/L 3.5-5 Slight 2979802338) hemolysis CL (test code = 104 mmol/L 98-108 8990384865) CO2 TOTAL (test code 25 mmol/L 23-31 = 2578602927) AGAP (test code = 2-16 6602532819) BUN (test code = 18 mg/dL 7-23 Slight 1357950832) hemolysis GLUCOSE (test code = 140 mg/dL 70-110 H 0182071744) CREATININE (test code 1.23 mg/dL 0.6-1.25 = 0333635252) CALCIUM (test code = 8.3 mg/dL 8.6-10.6 L 9441447465) eGFR Calculation mL/min/1.73m2 (Non-) (test code = 7048293843) eGFR Calculation mL/min/1.73m2 () (test code = 5614522677) QUINTON (test code = QUINTON) Association of Glomerular Filtration Rate (GFR) and Staging of Kidney Disease* + -----+ --------+ +| GFR (mL/min/1.73 m2) ?| With Kidney Damage ?| ?Without Kidney Damage+ +------- +---- --+| ?>90 ?| ?Stage one ?| ? Normal ?+ ------+ ---------+--------- +| ?60-89 ?| ?Stage two ?| ? Decreased GFR ? + -----+ --------+ +| ?30-59 ?| ?Stage three ?| ? Stage three ? + -----+ --------+ +| ?15-29 ?| ?Stage four ? | ? Stage four ?+ ------+ ---------+--------- +| ?<15 (or dialysis) ? ?| ?Stage five ? | ? Stage five ?+ ------+ ---------+--------- + *Each stage assumes the associated GFR level has been in effect for at least three months. ?Stages 1 to 5, with or without kidney disease, indicate chronic kidney disease. Notes: Determination of stages one and two (with eGFR >59mL/min/1.73 m2) requires estimation of kidney damage for at least three months as defined by structural or functional abnormalities of the kidney, manifested by either:Pathological abnormalities or Markers of kidney damage (including abnormalities in the composition of the blood or urine or abnormalities in imaging tests). Lab Interpretation Abnormal (test code = 83405-1) [facility] HoustonWINSOME [id number] 04:07:00 Test Item Value Reference Range Interpretation Comments TROPONIN I (test 0.009 ng/mL See_Comment [Automated code = 1379094335) message] The system which generated this result transmitted reference range : <=0.034. The reference range was not used to interpret this result as normal/abnormal . QUINTON (test code = Equal or Less than QUINTON) 0.034 ng/ml---Normal ?Note: Cardiac troponin begins to rise 3-4 hours after the onset of ischemia. Repeat in 4-6 hours if the sample was drawn within 3-4 hours of the onset of the symptom and found normal. Between 0.035 and 0.120 ng/mL--- Borderline. Questionable myocardial injury or necrosis ? ?Note: Serial measurement may be necessary to confirm or exclude the diagnosis of myocardial injury or necrosis; Clinical correlation (symptoms, EKGs, imaging studies, and others) required; Repeat in 4-6 hours if clinically indicated. ? Equal or Higher than 0.121 ng/mL---Abnormal. Myocardial Injury or Necrosis Likely ? Biotin has been reported to cause a negative bias, interpret results relative to patient's use of biotin. ? Lab Interpretation Normal (test code = 05401-4) [facility] HoustonN-TERMINAL [id number] 04:07:00 Test Item Value Reference Range Interpretation Comments NT-proBNP (test code 218 pg/mL See_Comment [Autom ated = 1826630994) message] The system which generated this result transmitted reference range : <=450. The reference range was not used to interpret this result as normal/abnormal . QUINTON (test code = QUINTON) Biotin has been reported to cause a negative bias, interpret results relative to patient's use of biotin. Lab Interpretation Normal (test code = 40216-2) [facility] HoustonCOMP. METABOLIC PANEL (11058)2019-09-19 04:01:00 Test Item Value Reference Range Interpretation Comments NA (test code = 140 mmol/L 135-145 4344750310) K (test code = 4.6 mmol/L 3.5-5 7392705058) CL (test code = 105 mmol/L 98-108 7168126533) CO2 TOTAL (test code = 29 mmol/L 23-31 7184089111) AGAP (test code = 2-16 2232781803) BUN (test code = 25 mg/dL 7-23 H 4996706047) GLUCOSE (test code = 145 mg/dL 70-110 H 3551220233) CREATININE (test code = 1.27 mg/dL 0.6-1.25 H 5464541918) TOTAL BILI (test code = 0.3 mg/dL 0.1-1.5 1418457793) CALCIUM (test code = 8.8 mg/dL 8.6-10.6 0555243525) T PROTEIN (test code = 6.9 g/dL 6.3-8.2 4422239786) ALBUMIN (test code = 3.9 g/dL 3.5-5 4737706223) ALK PHOS (test code = 102 U/L 34-122 3143220239) ALTv (test code = 16 U/L 5-50 1742-6) AST(SGOT) (test code = 25 U/L 13-40 4898499692) eGFR Calculation mL/min/1.73m2 (Non-) (test code = 1162202096) eGFR Calculation mL/min/1.73m2 () (test code = 1413081569) QUINTON (test code = QUINTON) Association of Glomerular Filtration Rate (GFR) and Staging of Kidney Disease* + --+ --+ ------+| GFR (mL/min/1.73 m2) ?| With Kidney Damage ?| ?Without Kidney Damage+ --------+ --------+ +| ?>90 ?| ?Stage one ?| ? Normal ?+ ---+ ---+ -------+| ?60-89 ?| ?Stage two ?| ? Decreased GFR ? + --+ --+ ------+| ?30-59 ?| ?Stage three ?| ? Stage three ? + --+ --+ ------+| ?15-29 ?| ?Stage four ? | ? Stage four ?+ ---+ ---+ -------+| ?<15 (or dialysis) ? ?| ?Stage five ? | ? Stage five ?+ ---+ ---+ -------+ *Each stage assumes the associated GFR level has been in effect for at least three months. ?Stages 1 to 5, with or without kidney disease, indicate chronic kidney disease. Notes: Determination of stages one and two (with eGFR >59mL/min/1.73 m2) requires estimation of kidney damage for at least three months as defined by structural or functional abnormalities of the kidney, manifested by either:Pathological abnormalities or Markers of kidney damage (including abnormalities in the composition of the blood or urine or abnormalities in imaging tests). Lab Interpretation Abnormal (test code = 26660-3) [facility] WITH [id number] 03:41:00 Test Item Value Reference Range Interpretation Comments WBC (test code = See_Comment [Automated 6690-2) message] The sy stem which generated this result transmitted reference range : 4.20 - 10.70 10*3/?L. The reference range was not used to interpret this result as normal/abnormal . RBC (test code = See_Comment [Automated 789-8) message] The sy stem which generated this result transmitted reference range : 4.26 - 5.52 10*6/?L. The reference range was not used to interpret this result as normal/abnormal . HGB (test code = 13.3 g/dL 12.2-16.4 718-7) HCT (test code = 41.0 % 38.4-49.3 4544-3) MCV (test code = 90.1 fL 81.7-95.6 787-2) MCH (test code = 29.2 pg 26.1-32.7 785-6) MCHC (test code = 32.4 g/dL 31.2-35 786-4) RDW-SD (test code = 47.8 fL 38.5-51.6 09218-1) RDW-CV (test code = 14.5 % 12.1-15.4 788-0) PLT (test code = See_Comment [Automated 777-3) message] The sy stem which generated this result transmitted reference range : 150 - 328 10*3/ ?L. The reference r tomasa was not used to interpret this result as normal/abnormal . MPV (test code = 10.6 fL 9.8-13 15491-0) NRBC/100 WBC (test See_Comment [Automat ed code = 2916151318) message] The system which generated this result transmitted reference range : 0.0 - 10.0 /100 WBCs. The refer ence range was not u sed to interpret th is result as normal/abnormal . NRBC x10^3 (test code <0.01 See_Comment [Auto mated = 4753349839) message] The s ystem which generated this result transmitted reference range : 10*3/?L. The reference range was not used to interpret this result as normal/abnormal . GRAN MAT (NEUT) % 72.6 % (test code = 770-8) IMM GRAN % (test code 0.40 % = 1258473987) LYMPH % (test code = 16.8 % 736-9) MONO % (test code = 7.9 % 5905-5) EOS % (test code = 1.7 % 713-8) BASO % (test code = 0.6 % 706-2) GRAN MAT x10^3(ANC) 7.12 10*3/uL 1.99-6.95 H (test code = 1489128990) IMM GRAN x10^3 (test 0.04 10*3/uL 0-0.06 code = 6468437997) LYMPH x10^3 (test code 1.65 10*3/uL 1.09-3.23 = 731-0) MONO x10^3 (test code 0.78 10*3/uL 0.36-1.02 = 742-7) EOS x10^3 (test code = 0.17 10*3/uL 0.06-0.53 711-2) BASO x10^3 (test code 0.06 10*3/uL 0.01-0.09 = 704-7) Lab Interpretation Abnormal (test code = 86246-8) [facility]ST 2 [id number] 03:09:38 No acute cardiopulmonary abnormality. Preliminary Report Dictated by Resident: Fahad Osman MD., have reviewed this study and agree with the abovereport.EXAM: XR CHEST 2 VW HISTORY: chest pain COMPARISON: Chest x-ray 06/11/2015 FINDINGS: The lungs are clear. No focal consolidation, pleural effusion orpneumothorax is seen. The cardiac silhouette is normal in size. No acute bonyabnormality. [facility], Radiant Results Inft User - 09/18/2019 10:10 PM CDTEXAM: XR CHEST 2 VWHISTORY: chest pain COMPARISON: Chest x-ray 06/11/2015FINDINGS:The lungs are clear. No focal consolidation, pleural effusion orpneumothorax is seen. The cardiac silhouette is normal in size.No acute bony abnormality.IMPRESSIONNo acute cardiopulmonary abnormality.Preliminary Report Dictated by Resident: Fahad Deleon MD., have reviewed this study and agree with the abovereport.[facility]
[2021-10-13 14:39] LABS: Absolute Lymphocytes (CBC) 1.2 K/uL (0.7-4.9); Hematocrit 41.3 % (39.6-49.0); Lymphocytes % 10.6 % (15.3-44.8); MCV 88.6 fL (80-100); MPV 8.3 fL (7.6-11.3); RBC Red Blood Cell Count 4.66 M/uL (4.33-5.43)
[2021-10-13 14:42] LABS: Protime INR 1.11
[2021-10-13 15:06] LABS: Albumin 2.9 g/dL (3.4-5.0); Bilirubin Direct 0.1 mg/dL (0-0.2); Bilirubin Total 0.4 mg/dL (0.2-1.0); Magnesium 2.1 mg/dL (1.8-2.4); Potassium 4.1 mmol/L (3.5-5.1); Protein, Total 6.4 g/dL (6.4-8.2); Troponin High Sensitivity 8.7 pg/mL (<58.9)
--- NOTE | 2021-10-13 15:17 | RAD REPORT ---
EXAM DESCRIPTION: RAD - Chest Single View - 10/13/2021 3:09 pm CLINICAL HISTORY: CHEST PAIN Chest pain. COMPARISON: Chest Pa And Lat (2 Views) dated 12/21/2017; Abdomen 1 View (KUB) dated 10/19/2017; CHEST PA AND LAT 2 VIEW dated 06/13/2010; ABDOMEN ACUTE SERIES dated 08/13/2005 FINDINGS: Portable technique limits examination quality. The lungs are grossly clear. The heart is normal in size. No displaced fractures. IMPRESSION: No acute intrathoracic process suspected.
--- NOTE | 2021-10-13 15:28 | EDPHYS ---
Physician Documentation [facility] Name: Eliseo Oro Age: 81 yrs Sex: Male : 1940 Arrival Date: 10/13/2021 Time: 13:36 Bed 15 Private MD: ED Physician Ben Oro HPI: 10/13 13:50 This 81 yrs old Male presents to ER via Ambulatory with complaints of chest pain and jh7 bilateral knee pain x 4 days. 13:50 The patient or guardian reports chest pain that is located primarily in the chest jh7 diffusely. Onset: 4 day(s) ago. Associated signs and symptoms: Pertinent positives: lower extremity pain. Patient reports bilateral knee pain with a history of osteoarthritis. He reports that when his knee started hurting his chest starts hurting too. He states that [facility] that would not prescribe him anything for his knee pain, which made his chest hurt. History of hypertension, osteoarthritis, and herniated disc.. Historical: - Home Meds: 13:47 gabapentin Oral [Active]; lisinopril Oral [Active]; jh5 - PMHx: 13:47 Hypertension; knee pain; neck pain; jh5 - Immunization history:: Adult Immunizations up to date. - Social history:: Smoking status: Patient denies any tobacco usage or history of. ROS: 13:50 Constitutional: Negative for fever, chills, and weight loss, Eyes: Negative for injury, jh7 pain, redness, and discharge, Neck: Negative for injury, pain, and swelling, Respiratory: Negative for shortness of breath, cough, wheezing, and pleuritic chest pain, Abdomen/GI: Negative for abdominal pain, nausea, vomiting, diarrhea, and constipation, Skin: Negative for injury, rash, and discoloration, Neuro: Negative for headache, weakness, numbness, tingling, and seizure. 13:50 Cardiovascular: Positive for chest pain, Negative for palpitations. 13:50 MS/extremity: Positive for pain, Negative for injury or acute deformity, decreased range of motion. 13:50 All other systems are negative. Exam: 13:50 Constitutional: This is a well developed, well nourished patient who is awake, alert, jh7 and in no acute distress. Neck: Trachea midline, no thyromegaly or masses palpated, and no cervical lymphadenopathy. Supple, full range of motion without nuchal rigidity, or vertebral point tenderness. No Meningismus. Cardiovascular: Regular rate and rhythm with a normal S1 and S2. No gallops, murmurs, or rubs. Normal PMI, no JVD. No pulse deficits. Respiratory: Lungs have equal breath sounds bilaterally, clear to auscultation and percussion. No rales, rhonchi or wheezes noted. No increased work of breathing, no retractions or nasal flaring. Abdomen/GI: Soft, non-tender, with normal bowel sounds. No distension or tympany. No guarding or rebound. No evidence of tenderness throughout. Back: No spinal tenderness. No costovertebral tenderness. Full range of motion. Skin: Warm, dry with normal turgor. Normal color with no rashes, no lesions, and no evidence of cellulitis. MS/ Extremity: Right Neuro: Awake and alert, GCS 15, oriented to person, place, time, and situation. Right motor strength 5/5 in all extremities. Sensory grossly intact. Normal gait. Vital Signs: 13:44 BP 123 / 67; Pulse 76; Resp 16; Temp 98.7; Pulse Ox 94% ; Weight 113.4 kg; Height 5 ft. jh5 8 in. (172.72 cm); Pain 6/10; 13:44 Body Mass Index 38.01 (113.40 kg, 172.72 cm) 5 MDM: 13:39 Patient medically screened. [facility] 15:20 Differential diagnosis: acute myocardial infarction, chest wall pain, Osteoarthritis. [facility] Data reviewed: vital signs, nurses notes, lab test result(s), EKG, radiologic studies, plain films. Data interpreted: Pulse oximetry: is 96 %. Interpretation: normal. Counseling: I had a detailed discussion with the patient and/or guardian regarding: the historical points, exam findings, and any diagnostic results supporting the discharge/admit diagnosis, to return to the emergency department if symptoms worsen or persist or if there are any questions or concerns that arise at home. ED course: The patient remained stable throughout his ER visit. During his exam he primarily complained about his chronic knee pain and reported multiple times that his chest only hurts when his knee pain becomes bad. He declined the aspirin, and the fentanyl was not given because the patient was sleeping soundly throughout the visit. Informed him that I could give him 3 days of tramadol, but that controlled medications are not the first-line treatment for osteoarthritis. Informed him he could also take Tylenol for the pain, but that he would need to follow-up with his PCP for further care. The patient agreed with the plan of care.. 10/13 13:47 Order name: Basic Metabolic Panel; Complete Time: 15:18 [facility] 10/13 13:47 Order name: CBC with Diff; Complete Time: 14:40 [facility] 10/13 13:47 Order name: LFT's; Complete Time: 15:18 [facility] 10/13 13:47 Order name: Magnesium; Complete Time: 15:18 [facility] 10/13 13:47 Order name: NT PRO-BNP; Complete Time: 15:18 [facility] 10/13 13:47 Order name: PT-INR; Complete Time: 15:02 [facility] 10/13 13:47 Order name: Troponin HS; Complete Time: 15:18 [facility] 10/13 13:47 Order name: XRAY Chest (1 view); Complete Time: 15:18 [facility] 10/13 13:47 Order name: EKG; Complete Time: 13:47 [facility] 10/13 13:47 Order name: Cardiac monitoring; Complete Time: 14:03 [facility] 10/13 13:47 Order name: EKG - Nurse/Tech; Complete Time: 14:23 [facility] 10/13 13:47 Order name: IV Saline Lock; Complete Time: 14:33 [facility] 10/13 13:47 Order name: Labs collected and sent; Complete Time: 14:33 [facility] 10/13 13:47 Order name: O2 Per Protocol; Complete Time: 14:03 [facility] 10/13 13:47 Order name: O2 Sat Monitoring; Complete Time: 14:03 [facility] EC:50 Rate is 70 beats/min. Rhythm is regular. QRS [place] is Normal. MT interval is normal at 7 164 msec. QRS interval is normal at 102 msec. QT interval is normal at 410 msec. No Q waves. T waves are Normal. No ST changes noted. Clinical impression: Normal ECG. Administered Medications: 14:31 Not Given (ems gave in [place]): Aspirin Chewable Tablet 324 mg PO once; 81 mg tablets x jh5 4 15:39 Not Given (pt sleeping peacefully in roomm): fentaNYL (PF) 50 mcg IVP once [facility] Disposition Summary: 10/13/21 15:27 Discharge Ordered Location: Home [facility] Problem: new [facility] Symptoms: have improved [facility] Condition: Stable [facility] Diagnosis - Chest pain, unspecified [facility] - Osteoarthritis of knee, unspecified 7 Followup: [facility] - With: Private Physician - When: 2 - 3 days - Reason: Recheck today's complaints Discharge Instructions: - Discharge Summary Sheet [facility] - Arthritis [facility] - Chest Wall Pain [facility] - Osteoarthritis [facility] Forms: - Medication Reconciliation Form [facility] - Thank You Letter [facility] - Prescription Opioid Use [facility] Prescriptions: - Tramadol 50 mg Oral Tablet - take 1 tablet by ORAL route every 8 hours as needed; 12 tablet; Refills: 0, jh7 Product Selection Permitted Signatures: Dispatcher [employer] Krystin Reyez RN RN jh5 Angie Robertson, REAL ESTATE REPRESENTATIVE REAL ESTATE REPRESENTATIVE 7
--- NOTE | 2021-10-13 15:28 | ER ---
Nurse's Notes [facility] Name: Eliseo Oro Age: 81 yrs Sex: Male : 1940 Arrival Date: 10/13/2021 Time: 13:36 Bed 15 Private MD: Diagnosis: Chest pain, unspecified;Osteoarthritis of knee, unspecified Presentation: 10/13 13:44 Chief complaint: Patient states: Pt has been clearing out his shed x3 days, developed jh5 chest pain that radiates to left shoulder and back. EMS gave 325mg. Coronavirus screen: Vaccine status: Client denies travel out of the [place] in the last 14 days. Ebola Screen: Patient negative for fever greater than or equal to 101.5 degrees Fahrenheit, and additional compatible Ebola Virus Disease symptoms Patient denies exposure to infectious person. Patient denies travel to an Ebola-affected area in the 21 days before illness onset. Initial Sepsis Screen: Does the patient meet any 2 criteria? No. Patient's initial sepsis screen is negative. Does the patient have a suspected source of infection? No. Patient's initial sepsis screen is negative. Risk Assessment: Do you want to hurt yourself or someone else? Patient reports no desire to harm self or others. Onset of symptoms was October 13, 2021. 13:44 Method Of Arrival: Ambulatory [facility] 13:44 Acuity: CAPRI 3 5 Triage Assessment: 13:47 General: Appears in no apparent distress. obese, Behavior is calm, cooperative, jh5 appropriate for age. Pain: Complains of pain in chest. Historical: - Home Meds: 13:47 gabapentin Oral [Active]; lisinopril Oral [Active]; 5 - PMHx: 13:47 Hypertension; knee pain; neck pain; jh5 - Immunization history:: Adult Immunizations up to date. - Social history:: Smoking status: Patient denies any tobacco usage or history of. Vital Signs: 13:44 BP 123 / 67; Pulse 76; Resp 16; Temp 98.7; Pulse Ox 94% ; Weight 113.4 kg; Height 5 ft. 5 8 in. (172.72 cm); Pain 6/10; 13:44 Body Mass Index 38.01 (113.40 kg, 172.72 cm) [facility] ED Course: 13:36 Patient arrived in ED. eb 13:39 Angie Robertson FNP is [facility]. 7 13:39 Ben Oro MD is Attending Physician. 7 13:47 Triage completed. 5 13:47 Arm band placed on right wrist. 5 14:03 Krystin Santos, RN is Primary Nurse. 5 14:33 Inserted saline lock: 22 gauge in left antecubital area, using aseptic technique. Blood zm collected. 14:33 Basic Metabolic Panel Sent. zm 14:34 CBC with Diff Sent. zm 14:34 LFT's Sent. zm 14:34 Magnesium Sent. zm 14:34 NT PRO-BNP Sent. zm 14:34 PT-INR Sent. zm 14:34 Troponin HS Sent. zm 15:11 XRAY Chest (1 view) In Process Unspecified. EDMS Administered Medications: 14:31 Not Given (ems gave in [place]): Aspirin Chewable Tablet 324 mg PO once; 81 mg tablets x [facility] 4 15:39 Not Given (pt sleeping peacefully in roomm): fentaNYL (PF) 50 mcg IVP once [facility] Outcome: 15:27 Discharge ordered by . [facility] 15:56 Patient left the ED. [facility] Signatures: Dispatcher [employer] EDMS Varsha Hillman Jessica, RN RN [facility] [place] Jennifer, FNP [place] [id number]
[2021-10-13 17:09] VITALS: BP 123/67; TEMP 98.7; O2SAT 94
--- NOTE | 2021-10-14 08:03 | EKG ---
Test Date: 2021-10-13 Test Time: 14:06:37 Design Eng: MEASUREMENT RESULTS: Intervals: Rate: 70 OR: 164 QRSD: 102 QT: 410 QTc: 442 [place]: P: 43 OR: 164 QRS: 11 T: 44 INTERPRETIVE STATEMENTS: Normal sinus rhythm Normal ECG Compared to ECG 06/02/2020 12:16:19 No significant changes Electronically Signed On 10-14-21 08:01:36 CDT by Richar Iyer
== END 2021-10-13 15:56 | disposition home or self-care (01) ==
LOC: ER 13:34
DX: R07.89 Other chest pain (principal); M17.0 Bilateral primary osteoarthritis of knee; I10 Essential (primary) hypertension
CPT/HCPCS: 36415; 71045; 80048; 80076; 83735; 83880; 84484; 85025; 85610; 93005; 99283

== ENCOUNTER 2022-10-18 07:58 | Emergency (ER) | payer OTHER ==
--- OUTSIDE RECORDS SUMMARY | 2022-10-18 08:02 | XMS REPORT | Continuity of Care Document ---
:1940 Author Organization [facility] t Address [address] [place] [address] Care Team Providers Name Role Phone CTR, [facility] ADMIN MED Primary Care Physician Unavailable TARUN WALL Attending Clinician Unavailable Pob, [facility] Main Attending Clinician Unavailable Tarun Wall MD Attending Clinician Doctor Unassigned, [place] Attending Clinician Unavailable Nadira Taylor RN Attending Clinician Unavailable DIXIE KUMAR Attending Clinician Unavailable Sandhya Tyson MD Attending Clinician Dixie Kumar MD Attending Clinician AMANDA ANTUNEZ Attending Clinician Unavailable Amanda Antunez MD Attending Clinician Vaccine, [facility] Attending Clinician Unavailable Unknown, Attending Attending Clinician Unavailable ARAVIND NOEL Attending Clinician Unavailable KATIE FOX Attending Clinician Unavailable Booker Montero MD Attending Clinician BOOKER MONTERO Attending Clinician Unavailable Kaylin Mcallister RN Attending Clinician Unavailable NATALIYA GREEN Attending Clinician Unavailable Only, Pcp Test Attending Clinician Unavailable Nataliya Green MD Attending Clinician Jayy Bradford MD Attending Clinician SANDHYA TYSON Admitting Clinician Unavailable Sandhya Tyson MD Admitting Clinician AMANDA ANTUNEZ Admitting Clinician Unavailable BOOKER MONTERO Admitting Clinician Unavailable Payers Payer Name Policy Type Policy Number Effective Date Expiration Date Saurav gao MEDICARE PART A \\T\\ [id number] 2007 B 00:00:00 [facility] [id number] 2007 MEDICARE SUPPLEMENT 00:00:00 Problems Condition Condition Condition Status Onset Resolution Last Treating Co mments Source Name Details Category Date Date Treatment Clinician Date 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 Added automatic ally from request for surgery [id number] Stool Stool Disease Active Overview: Univer s guaiac guaiac 4-06 Formattin ity of positive positive 00:00: g of this [place] as 00 note Medical might be Branch different from the original. Added automatic ally from request for surgery [id number] Tubular Tubular Disease Active Overview: Univ ers adenoma of adenoma of 06 Formattin ity of colon colon 00:00: g of this [place] 00 note Medical might be Branch different from the original. Added automatic ally from request for surgery [id number] Alternatin Alternatin Disease Active Overview : Univers g g -06 Formattin ity of constipati constipati 00:00: g of this [place] on and on and 00 note Medical diarrhea diarrhea might be Bran ch different from the original. Added automatic ally from request for surgery [id number] Black Black Disease Active Overview: Univer s tarry tarry 4-06 Formattin ity of stools stools 00:00: g of this [place] 00 note Medical might be Branch different from the original. Added automatic ally from request for surgery [id number] Incontinen Incontinen Disease Active Overview : Univers ce of ce of 4-06 Formattin ity of feces, feces, 00:00: g of this [place] unspecifie unspecifie 00 note Me dical d fecal d fecal might be Branch incontinen incontinen different ce type ce type from the original. Added automatic ally from request for surgery [id number] Morbid Morbid Disease Active Univers obesity obesity [...] on on 00:00: [place] exertion) exertion) 00 [facility] Branch Essential Essential Disease Active Uni vers [...] of pre-operat pre-operat 00:00: g of this [place] susy susy 00 note Medical examinatio examinatio might be Branch n n different from the original. Surgery on left hand Obesity Obesity Disease Active Overview: Univ ers 4-23 Formattin ity of 00:00: g of this [place] 00 note Medical might be Branch different from the original. 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 knees Coronary Coronary Disease Active Overview: Un darell atheroscle atheroscle Formattin ity of moe rosa g of this [place] note Medical might be Branch different from the original. 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 Allergies, Adverse Reactions, Alerts Allergy Allergy Status Severity Reaction(s) Onset Inactive Treating Comm ents Source Name Type Date Date Clinician NO KNOWN Drug Active Univers ALLERGIE Class ity of S [place] Medical [facility] Social History Social Habit Start Date Stop Date Quantity Comments Source Exposure to Not sure [facility] SARS-CoV-2 (event) [place] [facility] History SDOH Social Unive rsity of [facility] Med ical Together Branch History SDOH Social Unive rsity of [facility] Medical Branch History SDOH Social Unive rsity of [facility] Medical Membership Branch History SDAL Social Unive rsity of [facility] Medical Meetings Branch Cigarettes smoked 2022-03-06 2022-03-06 Univers ity of current (pack per 00:00:00 00:00:00 ) - Reported Branch Cigarette 2022-03-06 2022-03-06 University of pack-years 00:00:00 00:00:00 [facility] Branch Alcohol intake 2022-03-06 2022-03-06 .14 /d University of 00:00:00 00:00:00 [place] [facility] History SDOH 2022-03-06 2022-03-06 2 University o f Alcohol Frequency 00:00:00 00:00:00 [facility] edical Branch History SDOH 2022-03-06 2022-03-06 2 University o f Alcohol Std Drinks 00:00:00 00:00:00 [place] [facility] History SDOH 2022-03-06 2022-03-06 1 University o f Alcohol Binge 00:00:00 00:00:00 [place] Medic al Branch History SDOH Social 2022-03-06 2022-03-06 5 Unive rsity of Connections Phone 00:00:00 00:00:00 [place] M edical Branch History SDAL Social 2022-03-06 2022-03-06 8 Unive rsity of Connections Living 00:00:00 00:00:00 [place] [facility] History SDOH 2022-03-06 2022-03-06 0 University o f Physical Activity 00:00:00 00:00:00 [place] M edical DPW Branch History SDAL 2022-03-06 2022-03-06 0 University o f Physical Activity 00:00:00 00:00:00 [place] M edical MPS Branch History SDAL 2022-03-06 2022-03-06 5 University o f Financial 00:00:00 00:00:00 [place] [facility] History SDAL Food 2022-03-06 2022-03-06 1 Univers ity of Worry 00:00:00 00:00:00 [place] [facility] History SDAL Food 2022-03-06 2022-03-06 1 Univers ity of Scarcity 00:00:00 00:00:00 [place] [facility] History SDAL 2022-03-06 2022-03-06 2 University o f Transport Med 00:00:00 00:00:00 [place] Medic al Branch History SDAL 2022-03-06 2022-03-06 2 University o f Transport Non-Med 00:00:00 00:00:00 [facility] edical Branch Tobacco Comment 2022-03-06 2022-03-06 Less than a pack Uni versity of 00:00:00 00:00:00 a day [facility] Tobacco use and 2022-03-06 2022-03-06 Smokeless tobacco Un iversity of exposure 00:00:00 00:00:00 non-user [facility] Alcohol Comment 2016-03-27 2016-03-27 Occasional Universit y of 00:00:00 00:00:00 Drinker [facility] History of tobacco 2013-09-07 Cigarette Smoker University of use 00:00:00 [facility] Sex [birth year] At [birth year] Universit y of 00:00:00 00:00:00 [facility] Smoking Status Start Date Stop Date Source Smokes tobacco daily 2022-03-06 00:00:00 Univers it[facility] Former smoker 2015-09-08 00:00:00 2015-09-08 00:00:00 Universi [facility] Medications Ordered Filled Start Stop Current Ordering Indication Dosage Frequency Signature Comments Components Source Medication Medication Date Date Medication? Clinician (SIG) Name Name finasteride 2022- No [id number] 5mg Take 1 Univers 5 mg tablet 03-08 tablet by it y of 00:00: 05:59 mouth in [place] 00 :00 [facility] for 30 days. tamsulosin 2022- No [id number] .4mg Take 1 Univers 0.4 mg 24 03-08 capsule by ity of hr capsule 00:00: 05:59 mouth in [facility] 00 :00 [facility] for 30 days. finasteride 2022- No [id number] 5mg Take 1 Univers 5 mg tablet 03-08 tablet by it y of 00:00: 05:59 mouth in [place] 00 :00 [facility] for 30 days. tamsulosin 2022- No [id number] .4mg Take 1 Univers 0.4 mg 24 03-08 capsule by ity of hr capsule 00:00: 05:59 mouth in [facility] 00 :00 [facility] for 30 days. finasteride 2022- No [id number] 5mg Take 1 Univers 5 mg tablet 03-08 tablet by it y of 00:00: 05:59 mouth in [place] 00 :00 [facility] for 30 days. tamsulosin 2022- No [id number] .4mg Take 1 Univers 0.4 mg 24 03-08 capsule by ity of hr capsule 00:00: 05:59 mouth in [facility] 00 :00 [facility] for 30 days. clonidine Yes .1mg Take 0.1 Univ ers HCl 1-10 mg by ity of (CLONIDINE 15:48: mouth as [place] as ORAL) 28 needed. [facility] Branch gabapentin Yes 300mg Take 300 Un darell 300 mg 1-10 mg by ity of capsule 15:48: mouth in [place] 28 the Medical morning Branch and 300 mg at noon and 300 mg in the evening. clonidine 2023-0 Yes .1mg Take 0.1 Univ ers HCl 1-10 mg by ity of (CLONIDINE 15:48: mouth as [place] as ORAL) 28 needed. Medical Branch gabapentin 2023-0 Yes 300mg Take 300 Un darell 300 mg 1-10 mg by ity of capsule 15:48: mouth in [place] 28 the Medical morning Branch and 300 mg at noon and 300 mg in the evening. clonidine 2023-0 Yes .1mg Take 0.1 Univ ers HCl 1-10 mg by ity of (CLONIDINE 15:48: mouth as [place] ORAL) 28 needed. Medical Branch gabapentin 2023-0 Yes 300mg Take 300 Un darell 300 mg 1-10 mg by ity of capsule 15:48: mouth in [place] 28 the Medical morning Branch and 300 mg at noon and 300 mg in the evening. clonidine 2023-0 Yes .1mg Take 0.1 Univ ers HCl 1-10 mg by ity of (CLONIDINE 15:48: mouth as [place] ORAL) 28 needed. Medical Branch gabapentin 2023-0 Yes 300mg Take 300 Un darell 300 mg 1-10 mg by ity of capsule 15:48: mouth in [place] [address] the Medical morning Branch and 300 mg at noon and 300 mg in the evening. clonidine 2023-0 Yes .1mg Take 0.1 Univ ers HCl 1-10 mg by ity of (CLONIDINE 15:48: mouth as [place] ORAL) 28 needed. Medical Branch gabapentin 2023-0 Yes 300mg Take 300 Un darell 300 mg 1-10 mg by ity of capsule 15:48: mouth in [place] [address] the Medical morning Branch and 300 mg at noon and 300 mg in the evening. pantoprazol 2022-0 Yes 40mg 40 mg, Univ ers e 1-10 Oral, ity of (PROTONIX) 15:00: DAILY, [place] EC tablet 00 First dose Medi conor 40 mg on [facility] 03/07/22 at 0900, Until Discontinu ed, Routine ketorolac 2023-0 3- No 10mg 10 mg, Unive rs (TORADOL) 1-10 01-10 Oral, ONCE ity of tablet 10 13:40: 14:37 NOW, 1 [place] mg 00 :00 dose, On Medical [facility] 03/07/22 at 0745, Routine ketorolac 2022- No 10mg 10 mg, Unive rs (TORADOL) 1-10 03-09 Oral, ity of tablet 10 00:30: 00:29 Q6HPRN, [place] mg 00 :00 Starting Medical on Mon Branch 03/06/22 at 1830, Until 03/08/22 at 1829, Routine, Pain (scale 7-10) rosuvastati Yes [id number] 20mg Take 1 Univers n 20 mg 1-10 tablet by ity of tablet 00:00: mouth at [place] [address] bedtime. Medical Branch naproxen Yes [id number] 500mg Take 1 Univers 500 mg 1-10 9109 tablet by ity of tablet 00:00: mouth 2 (two) Medical times Branch daily as needed for Pain (scale 4-6) for up to 10 doses. rosuvastati Yes [id number] 20mg Take 1 Univers n 20 mg 1-10 tablet by ity of tablet 00:00: mouth at [place] bedtime. Medical Branch naproxen Yes [id number] 500mg Take 1 Univers 500 mg 1-10 9109 tablet by ity of tablet 00:00: mouth 2 (two) Medical times Branch daily as needed for Pain (scale 4-6) for up to 10 doses. rosuvastati Yes [id number] 20mg Take 1 Univers n 20 mg 1-10 tablet by ity of tablet 00:00: mouth at [place] 00 bedtime. Medical Branch naproxen Yes [id number] 500mg Take 1 Univers 500 mg 1-10 9109 tablet by ity of tablet 00:00: mouth 2 (two) Medical times Branch daily as needed for Pain (scale 4-6) for up to 10 doses. rosuvastati Yes [id number] 20mg Take 1 Univers n 20 mg 1-10 tablet by ity of tablet 00:00: mouth at [place] 00 bedtime. Medical Branch naproxen Yes [id number] 500mg Take 1 Univers 500 mg 1-10 9109 tablet by ity of tablet 00:00: mouth 2 [place] (two) Medical times Branch daily as needed for Pain (scale 4-6) for up to 10 doses. rosuvastati 2022-0 Yes [id number] 20mg Take 1 Univers n 20 mg 1-10 tablet by ity of tablet 00:00: mouth at [place] 00 bedtime. Medical Branch naproxen 2022-0 Yes [id number] 500mg Take 1 Univers 500 mg -10 9109 tablet by ity of tablet 00:00: mouth 2 [place] 00 (two) Medical times Branch daily as needed for Pain (scale 4-6) for up to 10 doses. naproxen 2022-0 202- No [id number] 500mg Take 1 Univers 500 mg -10 - 9109 tablet by ity of tablet 00:00: 00:00 mouth in [place] 00 :00 the Medical morning Branch and 1 tablet in the evening. Take with meals. Do all this for 14 days. enoxaparin 0 Yes 40mg 40 mg, Unive rs (LOVENOX) 03-06 Subcutaneo ity of injection 23:00: [place], DAILY, [place] 40 mg 00 First dose Medical on [facility] Branch 03/06/22 at 1700, Until Discontinu ed, Routine ketorolac 0 2022- No 10mg 10 mg, Unive rs (TORADOL) 03-06-09 Oral, ity of tablet 10 19:45: 22:11 ONCE, 1 [place] mg 00 :00 dose, On Medical 03/06/22 Branch at 1345, Routine acetaminoph 2022-0 Yes 1{tbl} 1 tablet, Univers en-codeine 03-06 Oral, ity of (TYLENOL 18:33: Q4HPRN, [place] #3) 300-30 02 Starting Medic al mg tablet 1 on [facility] Branch tablet 03/06/22 at 1233, Until Discontinu ed, Routine, Pain (scale 4-6) tamsulosin 0 Yes .4mg 0.4 mg, Univ ers (FLOMAX) 03-06 Oral, ity of capsule 0.4 15:00: DAILY, [place] mg 00 First dose Medical on [facility] Branch 03/06/22 at 0900, Until Discontinu ed, Routine finasteride 0 Yes 5mg 5 mg, Unive rs (PROSCAR) 03-06 Oral, ity of tablet 5 mg 15:00: DAILY, [place] 00 First dose Medical on Mon Branch 03/06/22 at 0900, Until Discontinu ed, Routine sennosides- 2022-0 Yes 1{tbl} 1 tablet, [facility] docusate 03-06 Oral, ity of sodium 15:00: DAILY, [place] (SENOKOT-S) 00 First dose Me dical 8.6-50 mg on [place] Branch per tablet 03/06/22 at 1 tablet 0900, Until Discontinu ed, Routine gabapentin 0 Yes 300mg 300 mg, Uni vers (NEURONTIN) 03-06 Oral, TID, it y of capsule 300 14:00: First dose [place] mg 00 on [facility] Medical 03/06/22 at Branch 0800, Until Discontinu ed, Routine lisinopriL Yes 20mg 20 mg, Unive rs (PRINIVIL,Z 03-06 Oral, BID, it y of ESTRIL) 14:00: First dose [place] tablet 20 00 on [facility] Medical mg 03/06/22 at Branch 0800, Until Discontinu ed, Routine ceFAZolin 2022- No 1000mg 1,000 mg, [facility] (ANCEF) 03-06 Intravenou ity o f 1,000 mg in 12:45: 22:39 s, Q8H [place] as water for 00 :01 ABX, 15 Medical injection, doses, Branch sterile 10 First dose mL SIVP on Mon syringe 03/06/22 at 0645, Last dose on 03/10/22 at 2245, 10 mL
Reas on for Anti-Infec tive: Documented Infection< br>Documen hansa Infection Site: Skin / Soft Tissue
Duration of Therapy: 7 days rosuvastati 0 Yes 20mg 20 mg, Univ ers n (CRESTOR) 03-06 Oral, QHS, it y of tablet 20 08:45: First dose [place] mg 00 on [facility] Medical 03/06/22 at Branch 0245, Until Discontinu ed, Routine acetaminoph 2022-2022- No 1{tbl} 1 tablet, [facility] en-codeine 03-06 Oral, ity of (TYLENOL 07:13: 18:33 Q4HPRN, [place] #3) 300-30 47 :14 Starting Medic al mg tablet 1 on Mon Branch tablet 03/06/22 at 0113, Until 03/06/22 at 1233, Routine, Pain (scale 7-10) ALPRAZOLAM 2022- No Take by Uni vers (XANAX 03-06 mouth. ity of ORAL) 01:14: 00:00 [place] 22 :00 Medical Branch iopamidol 2021- No [id number] 100mL 100 mL, Univers (ISOVUE 03-06 Intravenou [...] 1 Medical 15 mg dose, On Branch 03/06/21 at 0830, [place] morpHINE 2021- No 4mg 4 mg, Slow Un darell injection 4 03-06 IV Push, ity of mg 14:30: 13:41 ONCE, 1 [place] 00 :00 dose, On Medical 03/06/21 Branch at 0830, STAT cyclobenzap 2021- Yes [id number] 10mg Take 1 Univers rine 10 mg 03-06 tablet by ity of tablet 00:00: mouth 3 [place] 00 (three) Medical times Branch daily. cyclobenzap 2021-2022- No [id number] 10mg Take 1 Univers rine 10 mg 03-06 tablet by ity of tablet 00:00: 00:00 mouth 3 [place] 00 :00 (three) Medical times Branch daily. HYDROcodone 2021- No [id number] 1{tbl} Take 1-2 Univers -acetaminop 03-0617 tablets by i ty of hen 5-325 00:00: 05:59 mouth [place] mg tablet 00 :00 every 6 Medical (six) Branch hours as needed for Pain (scale 1-3) for up to 7 days. Indication s: acute pain predniSONE 2021- No [id number] 60mg Take 3 Univers 20 mg 03-0615 tablets by ity of tablet 00:00: 05:59 mouth [place] 00 :00 every Medical morning Branch for 5 days. HYDROcodone 2019-02 No 1{tbl} 1 tablet, Univers -acetaminop 04-23 Oral, ity of hen (NORCO 00:30: 23:43 ONCE, 1 [place] 5) 5-325 mg 00 :00 dose, Fri Med ical tablet 1 02/20/20 Branch tablet at 1830, [place] ceFAZolin 2019-02 No 1000mg 1,000 mg, Univers (ANCEF) 04-22 IV ity of 1,000 mg in 22:00: 22:06 Piggyback, [place] NaCl 0.9% 00 :00 ONCE, 1 Medical (NS) 50 mL dose, Sun Bran ch MINI-BAG 02/20/20 at 1600, 50 mL
Reas on for Anti-Infec tive: Empiric Therapy for Suspected Infection< br>Empiric Therapy Site: Skin / Soft tissue
Duration of therapy: 72 hours doxycycline 2019-02- No [id number] 100mg Take 1 Univers hyclate 100 04-22 capsule by i ty of mg capsule 00:00: 05:59 mouth 2 [place] 00 :00 (two) Medical times Branch daily for 10 days. traMADol 2019- No 50mg 50 mg, Univer s (ULTRAM) 09-18 07-24 Oral, ity of tablet 50 06:45: 05:58 ONCE, 1 [place] mg 00 :00 dose, Fri Medical 09/19/19 at Branch 0145, [place] predniSONE No 40mg 40 mg, Univ ers (DELTASONE) 09-18 07-24 Oral, ity of tablet 40 06:45: 05:58 ONCE, 1 [place] mg 00 :00 dose, Fri Medical 09/19/19 at Branch 0145, [place] lidocaine 5 2020-0 Yes [id number] Apply one Univers % (700 7-24 patch to ity of mg/patch) 00:00: most [place] patch 00 painful Medical area for Branch 12 hours a day, as needed for pain. PHARMACIST : dispense one box lidocaine 5 2020-0 Yes [id number] Apply one Univers % (700 7-24 patch to ity of mg/patch) 00:00: most [place] patch 00 painful Medical area for Branch 12 hours a day, as needed for pain. PHARMACIST : dispense one box lidocaine 5 2020-0 Yes [id number] Apply one Univers % (700 7-24 patch to ity of mg/patch) 00:00: most [place] patch 00 painful Medical area for Branch 12 hours a day, as needed for pain. PHARMACIST : dispense one box lidocaine 5 2020-0 Yes [id number] Apply one Univers % (700 7-24 patch to ity of mg/patch) 00:00: most [place] patch 00 painful Medical area for Branch 12 hours a day, as needed for pain. PHARMACIST : dispense one box lidocaine 5 2020-0 Yes [id number] Apply one Univers % (700 7-24 patch to ity of mg/patch) 00:00: most [place] patch 00 painful Medical area for Branch 12 hours a day, as needed for pain. PHARMACIST : dispense one box lidocaine 5 2020-0 Yes [id number] Apply one Univers % (700 7-24 patch to ity of mg/patch) 00:00: most [place] patch 00 painful Medical area for Branch 12 hours a day, as needed for pain. PHARMACIST : dispense one box lidocaine 5 2020-0 2023- No [id number] Apply one Univers % (700 7-24 -09 patch to ity of mg/patch) 00:00: 00:00 most [place] patch 00 :00 painful Medical area for Branch 12 hours a day, as needed for pain. PHARMACIST : dispense one box predniSONE 2020-0 2020- No [id number] 40mg Take 2 Univers 20 mg 7-24 08- tablets by ity of tablet 00:00: 04:59 mouth [place] 00 :00 every Medical morning Branch for 7 days. traMADol 50 2020-0 2020- No [id number] 50mg Take 1 Uni vers mg tablet 7-24 08-01 tablet by ity of 00:00: 04:59 mouth [...] mouth [place] 00 daily. Medical Branch nebivolol 2017-02- No 2.5mg Take 1 Univ ers 2.5 mg 0-15 03-06 tablet by ity of tablet 00:00: 00:00 mouth [place] 00 :00 daily. Medical Branch clonidine Yes .1mg Take [...] mouth as [place] as ORAL) 04 needed. [facility] Branch clonidine Yes .1mg Take 0.1 Univ ers HCl 9-27 mg by ity of (CLONIDINE 21:37: mouth as [place] ORAL) 04 needed. [facility] Branch ALPRAZOLAM Yes Take by Univ ers (XANAX 9-27 mouth. ity of ORAL) 13:58: [address] ALPRAZOLAM Yes Take by Univ ers (XANAX 9-27 mouth. ity of ORAL) 13:58: [address] ALPRAZOLAM Yes Take by Univ ers (XANAX 9-27 mouth. ity of ORAL) 13:58: [address] ALPRAZOLAM Yes Take by Univ ers (XANAX 9-27 mouth. ity of ORAL) 13:58: [address] ALPRAZOLAM Yes Take by Univ ers (XANAX 9-27 mouth. ity of ORAL) 08:58: [address] ALPRAZOLAM Yes Take by Univ ers (XANAX 9-27 mouth. ity of ORAL) 08:58: [address] lisinopril 2015-0 Yes 20mg Take 1 [...] Immunizations Ordered Filled Immunization Date Status Comments [facility] e Immunization Name Name SARS-COV-2 COVID-19 2021-02-21 Completed Unive rsity of PFIZER VACCINE 00:00:00 [facility] SARS-COV-2 COVID-19 2021-02-21 Completed Unive rsity of PFIZER VACCINE 00:00:00 [facility] SARS-COV-2 COVID-19 2021-02-21 Completed Unive rsity of PFIZER VACCINE 00:00:00 [facility] SARS-COV-2 COVID-19 2021-02-21 Completed Unive rsity of PFIZER VACCINE 00:00:00 [facility] SARS-COV-2 COVID-19 2021-02-21 Completed Unive rsity of PFIZER VACCINE 00:00:00 [facility] SARS-COV-2 COVID-19 2021-02-21 Completed Unive rsity of PFIZER VACCINE 00:00:00 [facility] SARS-COV-2 COVID-19 2021-02-21 Completed Unive rsity of PFIZER VACCINE 00:00:00 [facility] Pfizer COVID-19 Pfizer COVID-19 2021-02-21 Completed Vaccine Vaccine 00:00:00 SARS-COV-2 COVID-19 2020-04-28 Completed Unive rsity of PFIZER VACCINE 00:00:00 [facility] SARS-COV-2 COVID-19 2020-04-28 Completed Unive rsity of PFIZER VACCINE 00:00:00 [facility] SARS-COV-2 COVID-19 2020-04-28 Completed Unive rsity of PFIZER VACCINE 00:00:00 [facility] SARS-COV-2 COVID-19 2020-04-28 Completed Unive rsity of PFIZER VACCINE 00:00:00 [facility] SARS-COV-2 COVID-19 2020-04-28 Completed Unive rsity of PFIZER VACCINE 00:00:00 [facility] SARS-COV-2 COVID-19 2020-04-28 Completed Unive rsity of PFIZER VACCINE 00:00:00 [facility] SARS-COV-2 COVID-19 2020-04-28 Completed Unive rsity of PFIZER VACCINE 00:00:00 [facility] Pfizer COVID-19 Pfizer COVID-19 2020-04-28 Completed Vaccine Vaccine 00:00:00 SARS-COV-2 COVID-19 2020-04-06 Completed Unive rsity of PFIZER VACCINE 00:00:00 [facility] SARS-COV-2 COVID-19 2020-04-06 Completed Unive rsity of PFIZER VACCINE 00:00:00 [facility] SARS-COV-2 COVID-19 2020-04-06 Completed Unive rsity of PFIZER VACCINE 00:00:00 [facility] SARS-COV-2 COVID-19 2020-04-06 Completed Unive rsity of PFIZER VACCINE 00:00:00 [facility] SARS-COV-2 COVID-19 2020-04-06 Completed Unive rsity of PFIZER VACCINE 00:00:00 [facility] SARS-COV-2 COVID-19 2020-04-06 Completed Unive rsity of PFIZER VACCINE 00:00:00 [facility] SARS-COV-2 COVID-19 2020-04-06 Completed Unive rsity of PFIZER VACCINE 00:00:00 [facility] Pfizer COVID-19 Pfizer COVID-19 2020-04-06 Completed Vaccine [...] Time Observation Value Comments Source Systolic blood 2022-03-07 17:45:00 153 mm[Hg] Univer sity of pressure [facility] Diastolic blood 2022-03-07 17:45:00 78 mm[Hg] Unive rsity of pressure [facility] Heart rate 2022-03-07 17:45:00 67 /min [facility] Body temperature 2022-03-07 17:45:00 36.83 [facility]ael [facility] in 2022-03-07 17:45:00 94 /min [facility] of [facility]terial blood by [place] [facility] Pulse oximetry Branch Respiratory rate 2022-03-07 09:55:00 20 /min [facility] Body height 2022-03-06 05:58:00 171.5 cm [facility] [place] [facility] [place] Body weight 2022-03-06 05:58:00 102.468 kg bedscale [facility] [place] BMI 2022-03-06 05:58:00 34.86 kg/m2 [facility] Systolic blood 2021-03-06 14:00:00 142 mm[Hg] Univer sity of pressure [facility] Diastolic blood 2021-03-06 14:00:00 76 mm[Hg] Unive rsity of pressure [facility] [place] Heart rate 2021-03-06 14:00:00 68 /min [facility] [place] Body temperature 2021-03-06 14:00:00 36.33 Rachael [facility] [place] [facility] [place] Respiratory rate 2021-03-06 14:00:00 18 /min [facility] Oxygen saturation in 2021-03-06 14:00:00 98 /min University of Arterial blood by [facility] conor Pulse oximetry Branch Body weight 2021-03-06 13:14:00 113.853 kg [facility] [place] [facility] [place] BMI 2021-03-06 13:14:00 39.31 kg/m2 [facility] Systolic blood 2020-02-21 01:49:13 144 mm[Hg] Univer sity of pressure [facility] Diastolic blood 2020-02-21 01:49:13 77 mm[Hg] Unive rsity of pressure [facility] Heart rate 2020-02-21 01:49:13 69 /min [facility] Body temperature 2020-02-21 01:49:13 35.72 Rachael [facility] Respiratory rate 2020-02-21 01:49:13 18 /min [facility] Oxygen saturation in 2020-02-21 01:49:13 96 /min [facility] Arterial blood by [place] [facility] P[facility] oxim[facility] Body weight 2020-02-20 19:56:00 113.399 kg [facility] BMI 2020-02-20 19:56:00 39.16 kg/m2 [facility] Systolic blood 2020-02-21 01:49:13 144 mm[Hg] Univer sity of pressure [facility] Diastolic blood 2020-02-21 01:49:13 77 mm[Hg] Unive rsity of pressure [facility] Heart rate 2020-02-21 01:49:13 69 /min [facility] Body temperature 2020-02-21 01:49:13 35.72 Rachael [facility] Respiratory rate 2020-02-21 01:49:13 18 /min [facility] Oxygen saturation in 2020-02-21 01:49:13 96 /min University of Arterial blood by [facility] conor Pulse oximetry Branch Body weight 2020-02-20 19:56:00 113.399 kg [facility] BMI 2020-02-20 19:56:00 39.16 kg/m2 [facility] Systolic blood 2019-09-19 06:16:00 154 mm[Hg] Univer sity of pressure [facility] Diastolic blood 2019-09-19 06:16:00 80 mm[Hg] Unive rsity of pressure [facility] Heart rate 2019-09-19 06:16:00 70 /min [facility] Respiratory rate 2019-09-19 06:16:00 16 /min [facility] Oxygen saturation in 2019-09-19 06:16:00 97 /min University of Arterial blood by [facility] conor Pulse oximetry Branch Body temperature 2019-09-19 01:28:00 37.06 Rachael [facility] Body weight 2019-09-19 01:28:00 108.863 kg [facility] BMI 2019-09-19 01:28:00 37.59 kg/m2 [facility] Systolic blood 2019-09-19 06:16:00 154 mm[Hg] Univer sity of pressure [facility] Diastolic blood 2019-09-19 06:16:00 80 mm[Hg] Unive rsity of pressure [facility] Heart rate 2019-09-19 06:16:00 70 /min [facility] Respiratory rate 2019-09-19 06:16:00 16 /min [facility] Oxygen saturation in 2019-09-19 06:16:00 97 /min University Arterial blood by [facility] Pulse oximetry Branch Body temperature 2019-09-19 01:28:00 37.06 Rachael Univ [facility] Body weight 2019-09-19 01:28:00 108.863 kg [facility] BMI 2019-09-19 01:28:00 37.59 kg/m2 [facility] Procedures Procedure Date / Time Performing Clinician Source Performed PHYSICIAN ORDERS 2022-06-01 05:01:00 Doctor Unassigned, No Unive [facility] Name [facility] EXTERNAL PROVIDER 2022-03-15 06:01:00 Doctor Unassigned, No Univ [facility] RECORDS [facility] XR FOOT 3+ VW RIGHT 2022-03-06 10:42:00 Raleigh Mustafa [facility] EXTRA TUBE LT. BLUE 2022-03-06 07:48:00 Sandhya Tyson [facility] EXTRA TUBE SST 2022-03-06 07:48:00 Sandhya Tyson [facility] BLOOD CULTURE SCREEN 2022-03-06 07:37:00 Ramsey [facility] MAGNESIUM 2022-03-06 07:37[facility] PROTEIN 2022-03-06 07:37:00 [facility] [place] [facility] PANEL 2022-03-06 07:37:00 Raleigh Mustafa [facility] ([id number]) (ALB,T.PRO,BILI [facility] T,BU/BC,ALT,AST,ALK PHOS) BASIC METABOLIC PANEL 2022-03-06 07:37:00 Raleigh Mustafa [facility] (NA, K, CL, CO2, Medical Branch GLUCOSE, BUN, CREATININE, CA) LIPID PANEL 2022-03-06 07:37:00 [id number]TOTAL Medical [place] CHOLESTEROL, TRIGLYCERIDES, HDL) SEDIMENTATION RATE 2022-03-06 07:37:00 Ramsey [facility] CBC WITH DIFF 2022-03-06 07:37:00 Ramsey [facility] f [facility] GLYCOSYLATED HEMOGLOBIN 2022-03-06 07:37:00 Raleigh Mustafa [facility] (A1C) [facility] CT ABDOMEN PELVIS W 2021-03-06 14:34:05 Amanda Antunez [facility] CONTRAST [facility] URINALYSIS 2021-03-06 14:18:00 Amanda Antunez [facility] LIPASE 2021-03-06 13:43:00 Amanda Antunez [facility] COMP. METABOLIC PANEL 2021-03-06 13:43:00 Amanda Antunez [facility] ([id number]) [facility] CBC WITH DIFF 2021-03-06 13:43:00 Amanda Antunez [facility] SARS-COV-2 COVID-19 2021-02-21 15:21:00 Doctor [facility]igned, No [facility] V[facility],0.3ML,IM Name [facility] (PFIZER) CBC WITH DIFF 2020-02-20 23:48:00 Booker Montero [facility] US LOWER EXTREMITY VEIN 2020-02-20 22:07:03 Booker Montero [facility] WITH COMPRESSION LEFT Medical Br anch (ONLY FOR RULE OUT DVT) BASIC METABOLIC PANEL 2020-02-20 21:25:00 Booker Montero [facility] (NA, K, CL, CO2, [facility] GLUCOSE, BUN, CREATININE, CA) XR FOOT 3+ VW LEFT 2020-02-20 21:08:03 Booker Montero [facility] CBC WITH DIFF 2019-09-19 03:33:00 Ian Huggins [facility] TROPONIN I 2019-09-19 03:32:00 Ian Huggins [facility] COMP. METABOLIC PANEL 2019-09-19 03:32:00 Ian Huggins [facility] ([id number]) [facility] N-TERMINAL PRO-BNP 2019-09-19 03:32:00 Ian uHggins [facility] XR CHEST 2 VW 2019-09-19 02:13:08 Ian Huggins [facility] EKG-12 LEAD 2019-09-19 01:45:35 Ian Huggins [facility] Encounters Start End Encounter Admission Attending Care Care Encounter Source Date/Time Date/Time Type Type Clinicians Facility Department ID 2020-12-24 Emergency [facility] [id number] Univers 08:32:25 ity of [facility] 2022-06-01 2022-06-01 Outpatient R DUKE [facility] [id number] Univers 11:00:00 13:45:00 TARUN [facility] 2022-06-01 2022-06-01 Health Service Worker Yasmine Rodney Lab Main [facility] 1.2.8 40.114 [id number] Univers 11:00:00 11:15:00 Visit Tarun Wall 350.1.13.10 [place] [id number] [address] 2022-06-01 2022-06-01 Orders Doctor HURD 1.2.840.114 [id number] Univers 00:00:00 00:00:00 Only Unassigned, MYA 350.1.13.10 ity of [facility] 4.2.7.2.[id number] [facility] [address] [place] 2022-03-15 2022-03-15 Orders Doctor VANNESSA 1.2.840.114 [id number] Univers 00:00:00 00:00:00 Only Unassigned, MYA 350.1.13.10 ity of [facility] 4.2.7.2.[id number] [facility] [address] [place] 2022-03-08 2022-03-08 Transition FERNANDA Taylor 1.2.840.114 [id number] Univers 00:00:00 00:00:00 of Care Nadira PEREA 350.1.13.10 [place] [place] [id number] [facility] 403 Branch 2022-03-05 2022-03-07 Outpatient U KEVIN [facility] OMER [id number] Univers 23:53:00 14:50:00 DIXIE ity of [facility] 2022-03-05 2022-03-07 [facility] Sandhya Tyson 1.2.84 0.114 [id number] Univers 23:53:00 14:50:00 Encounter Dixie Kumar 350.1.13.10 ity of HOSPITAL 4.2.7.2.[id number] [facility] 100 Branch 2021-03-06 2021-03-06 Emergency X ANTUNEZ, [facility] ERT [id number] Univers 07:16:00 09:29:00 AMANDA [facility] 2021-03-06 2021-03-06 Emergency Antunez, [place] 1.2.579.028 [id number] Univers 07:16:00 09:29:00 Amanda [facility] 350.1.13.10 [place] [place] [id number] [facility] 014 Branch 2021-02-21 2021-02-21 Imm/Inj Vaccine, [facility] 1.2. 840.114 [id number] Univers 09:40:00 09:50:00 Visit Unknown, Attending IS[place] 350.1.13.10 ity [place] [id number] [facility] 332 Branch 2021-02-21 2021-02-21 Outpatient Dusty NOEL, [facility] [id number] Univers 09:40:00 09:27:25 ARAVIND [facility] 2021-02-21 2021-02-21 Outpatient GCCOVIDV GCCOVIDV [id number] GCCOVID 00:00:00 00:00:00 V 2020-04-28 2020-04-28 Outpatient Dusty FOX, [facility] [id number] Univers 09:00:00 09:00:00 KATIE [facility] 2020-04-28 2020-04-28 Outpatient GCCOVIDV GCCOVIDV [id number] GCCOVID 00:00:00 00:00:00 V 2020-04-06 2020-04-06 Outpatient GCCOVIDV GCCOVIDV [id number] GCCOVID 00:00:00 00:00:00 V 2020-02-20 2020-02-20 Emergency Kylah, [place] 1.2.401.696 [id number] 13:58:00 19:58:00 Booker POSADAS 350.1.13.10 4.2.7.2.686 [id number] 2020-02-20 2020-02-20 Emergency X KYLAH, PAMB ERT [id number] Univers 13:58:00 19:58:00 BOOKER [facility] 2020-02-20 2020-02-20 Emergency Kylah, [place] 1.2.020.817 [id number] Univers 13:58:00 19:58:00 [facility] 350.1.13.10 [id number] [address] 2020-01-06 2020-01-06 Letter Kaylin Mcallister 1.2.840.114 [id number] 00:00:00 00:00:00 (Out) MYA 350.1.13.10 HOSPITAL 4.2.7.2.686 [id number] 2020-01-06 2020-01-06 Letter Kaylin Mcallister 1.2.840.114 [id number] Univers 00:00:00 00:00:00 (Out) MYA 350.1.13.10 it y of HOSPITAL 4.2.7.2.686 Jimmy as [id number] [address] 2020-01-05 2020-01-05 Outpatient R JAZMIN [facility] [id number] Univers 09:45:00 09:45:00 NATALIYA [facility] 2020-01-05 2020-01-05 Laboratory Only, Pcp [facility] 1.2.840.114 [id number] 09:27:09 09:42:09 Only Test PRIMARY 350.1.13.10 CARE 4.2.7.2.686 [facility] [id number] 2020-01-05 2020-01-05 Laboratory Only, Pcp Test [facility] 1.2.840. 114 [id number] Univers 09:27:09 09:42:09 Only Nataliya Green H PRIMARY 350.1.13.10 [place] [id number] [place] [address] [place] [address] 2019-09-18 2019-09-19 Emergency Kaale, TRAUMA 1.2.154.811 [id number] 20:29:21 01:19:00 [facility] 350.1.13.10 4.2.7.2.686 [id number] 2019-09-18 2019-09-19 Emergency Kaale, TRAUMA 1.2.976.282 [id number] Univers 20:29:21 01:19:00 [facility] 350.1.13.10 [place] [place] [id number] [facility] 014 Branch Results Test Description Test Time Test Comments Results Result Comments Source COMP. METABOLIC PANEL ([id number]) 2021-03-06 14:06:49 Test Item Value Reference Range Interpretation Comme nts NA (test code = 6932829511) 137 mmol/L 135-145 K (test code = 7565439870) 4.8 mmol/L 3.5-5.0 CL (test code = 6541104237) 106 mmol/L 98-108 CO2 TOTAL (test code = 7958474741) 26 mmol/L 23-31 AGAP (test code = 7036558695) 2-16 BUN (test code = 9498673629) 20 mg/dL 7-23 GLUCOSE (test code = 8181925700) 132 mg/dL 70-110 H CREATININE (test code = 1.26 mg/dL 0.60-1.25 H 2695007666) TOTAL BILI (test code = 0.6 mg/dL 0.1-1.8 1778398738) CALCIUM (test code = 5174961579) 8.4 mg/dL 8.6-10.6 L T PROTEIN (test code = 7816514457) 6.3 g/dL 6.3-8.2 ALBUMIN (test code = 6287873512) 3.7 g/dL 3.5-5.0 ALK PHOS (test code = 0425856730) 83 U/L 34-122 ALTv (test code = 1742-6) 17 U/L 5-50 AST(SGOT) (test code = 7741319281) 24 U/L 13-40 eGFR (test code = 1406702846) mL/min/1.73m2 QUINTON (test code = QUINTON) Association [...] tests). Lab Interpretation (test code = Abnormal 05502-7) [facility] 14:06:49 Test Item Value Reference Range Interpretation Comments LIPASE (test code = 5927838777) 63 U/L 0-220 Lab Interpretation (test code = Normal 89103-0) [facility] [id number] 14:00:48 Test Item Value Reference Range Interpretation Comments WBC (test code = See_Comment [Automated 7623-2) message] The sy stem which generated this result transmitted reference range : 4.20 - 10.70 10*3/?L. The reference range was not used to interpret this result as normal/abnormal . RBC (test code = See_Comment [Automated 015-9) message] The sy stem which generated this [...] RDW-SD (test code = 46.9 fL 38.5-51.6 84689-7) RDW-CV (test code = 14.4 % 12.1-15.4 788-0) PLT (test code = See_Comment [Automated 777-3) message] The sy stem which generated this result transmitted reference range : 150 - 328 10*3/ ?L. The reference r tomasa was not used to interpret this result as normal/abnormal . MPV (test code = 10.9 fL 9.8-13.0 70854-0) NRBC/100 WBC (test See_Comment [Automat ed code = 3030074445) message] The system which generated this result transmitted reference range : 0.0 - 10.0 /100 WBCs. The refer ence range was not u sed to interpret th is result as normal/abnormal . NRBC x10^3 (test code <0.01 See_Comment [Auto mated = 9501661997) message] The s ystem which generated this result transmitted reference range : 10*3/?L. The reference range was not used to interpret this result as normal/abnormal . GRAN MAT (NEUT) % 77.8 % (test code = 770-8) IMM GRAN % (test code 0.40 % = 0439663969) LYMPH % (test code = 12.0 % 736-9) MONO % (test code = 6.9 % 5905-5) EOS % (test code = 2.4 % 713-8) BASO % (test code = 0.5 % 706-2) GRAN MAT x10^3(ANC) 5.71 10*3/uL 1.99-6.95 (test code = 1842197187) IMM GRAN x10^3 (test 0.03 10*3/uL 0.00-0.06 code = 0642650251) LYMPH x10^3 (test code 0.88 10*3/uL 1.09-3.23 L = 731-0) MONO x10^3 (test code 0.51 10*3/uL 0.36-1.02 = 742-7) EOS x10^3 (test code = 0.18 10*3/uL 0.06-0.53 711-2) BASO x10^3 (test code 0.04 10*3/uL 0.01-0.09 = 704-7) Lab Interpretation Abnormal (test code = 82574-5) [facility] WITH [id number] 00:06:00 Test Item Value Reference Range Interpretation Comments WBC (test code = See_Comment [Automated message] 9190-2) The system [employer] generated this result transmitted ref erence range: 4.20 - 1 0.70 10*3/?L. The re ference range was not u sed to interpret this result as normal/abnor mal. RBC (test code = See_Comment [Automated message] 169-8) The system [employer] generated this result transmitted ref erence range: [...] RDW-SD (test code 48.1 fL 38.5-51.6 = 73802-3) RDW-CV (test code 14.1 % 12.1-15.4 = 788-0) PLT (test code = See_Comment [Automated message] 887-3) The system [employer] generated this result transmitted ref erence range: 150 - 32 8 10*3/?L. The re ference range was not u sed to interpret this result as normal/abnor mal. MPV (test code = 10.9 fL 9.8-13 23855-6) NRBC/100 WBC (test See_Comment [Automat ed message] code = 9727443699) The syste m which generated this result transmitted ref erence range: 0.0 - 10 .0 /100 WBCs. The refer ence range was not u sed to interpret this result as normal/abnor mal. NRBC x10^3 (test <0.01 See_Comment [Automated message] code = 8158628852) The syste m which generated this result transmitted ref erence range: 10*3/?L. The reference range was not used to interpr et this result as normal/abnormal . GRAN MAT (NEUT) % 70.1 % (test code = 770-8) IMM GRAN % (test 0.40 % code = 8463557105) LYMPH % (test code 15.7 % = 736-9) MONO % (test code 8.8 % = 5905-5) EOS % (test code = 4.0 % 713-8) BASO % (test code 1.0 % = 706-2) GRAN MAT 6.45 10*3/uL 1.99-6.95 x10^3(ANC) (test code = 4968618811) IMM GRAN x10^3 0.04 10*3/uL 0-0.06 (test code = 0066338953) LYMPH x10^3 (test 1.44 10*3/uL 1.09-3.23 code = 731-0) MONO x10^3 (test 0.81 10*3/uL 0.36-1.02 code = 742-7) EOS x10^3 (test 0.37 10*3/uL 0.06-0.53 code = 711-2) BASO x10^3 (test 0.09 10*3/uL 0.01-0.09 code = 704-7) [facility] LOWER EXTREMITY VEIN WITH COMPRESSION LEFT (ONLY FOR RULE OUT DVT)2020-02-20 23:29:22No evidence of deep venous thrombosis in the left lower extremity. Preliminary Report Dictated by Resident: ObKaroline Bruner MD., have reviewed this study and agree with theabovereport.EXAM: US LOWER EXTREMITY VEIN WITH COMPRESSION LEFT (ONLY FOR RULE OUT DVT) HISTORY: 79 years-old Male with swelling and pain left lower leg and foot TECHNIQUE: Survey ultrasound imaging of thedeep venous system of leftlower extremity was performed including color and spectral Dopplerevaluation with labor representative images obtained. Segmental venouscompression and calf vein augmentation were performed. COMPARISON: None FINDINGS: Left Lower Extremity: Common femoral vein: Patent without thrombus. Normal phasicity is indirectevidence of central patency.Cephalad greater saphenous vein: Patent wi thout thrombus.Femoral vein: Patent without thrombus.Popliteal vein: Patent without thrombus. Normalresponse to augmentation. [facility], Radiant Results Inft User - 02/20/2020 5:30 PM CSTEXAM: US LOWER EXTREMITY VEIN WITH COMPRESSION LEFT (ONLY FOR RULE OUT DVT)HISTORY: 79 years -old Male with swelling and pain left lower leg and foot TECHNIQUE: Survey ultrasound imaging of the deep venous system of leftlower extremity was performed including color and spectral Dopplerevaluation with labor representative images obtained. Segmental venouscompression and calf [...] reviewed this study and agree with theabove report.[facility]+ VW [id number] 23:16:16 Soft tissue swelling about the forefoot without underlying acute bonyabnormality. Preliminary Report Dictated by Resident: Nadja Ashley I, German Pederson MD., have reviewed this study and agree with the abovereport.EXAM: XR FOOT 3+ VW LEFT HISTORY: 79 years-old Male with swelling, pain. infection? COMPARISON: None. FINDINGS: Radiographs of the left foot demonstrate soft tissue swelling about theforefoot without underlying bony erosions. No acute fractures ordislocations. Dorsal and plantar calcaneal enthesopathy. An os navicular isseen. Joint spaces are preserved. Alignment is within normal limits. [facility], Radiant Results Inft User - 02/20/2020 5:17 [...] reviewed this study and agree with the abovereport.[facility] (NA, K, CL, CO2, GLUCOSE, BUN, CREATININE, CA)2020-02-20 21:47:00 Test Item Value Reference Range Interpretation Comments NA (test code = 137 mmol/L 135-145 4365502011) K (test code = 4.1 mmol/L 3.5-5 Slight 8206631332) hemolysis CL (test code = 104 mmol/L 98-108 5835517841) CO2 TOTAL (test code 25 mmol/L 23-31 = 7081086773) AGAP (test code = 2-16 4332163705) BUN (test code = 18 mg/dL 7-23 Slight 5775588745) hemolysis GLUCOSE (test code = 140 mg/dL 70-110 H 7265896173) CREATININE (test code 1.23 mg/dL 0.6-1.25 = 8069847115) CALCIUM (test code = 8.3 mg/dL 8.6-10.6 L 0593531253) eGFR Calculation mL/min/1.73m2 (Non-) (test code = 9830342296) eGFR Calculation mL/min/1.73m2 () (test code = 6404925055) QUINTON (test code = QUINTON) Association of [...] tests). Lab Interpretation Abnormal (test code = 59981-3) [facility] [id number] 04:07:00 Test Item Value Reference Range Interpretation Comments TROPONIN I (test 0.009 ng/mL See_Comment [Automated code = 1797461549) message] The system which generated this result [...] ? Lab Interpretation Normal (test code = 40631-3) [facility] [id number] 04:07:00 Test Item Value Reference Range Interpretation Comments NT-proBNP (test code 218 pg/mL See_Comment [Autom ated = 9997685484) message] The system which generated this result transmitted reference range : <=450. The reference range was not used to interpret this result as normal/abnormal . QUINTON (test code = QUINTON) Biotin has been reported to cause a negative bias, interpret results relative to patient's use of biotin. Lab Interpretation Normal (test code = 20265-8) [facility]OL[facility] (98409)2019-09-19 04:01:00 Test Item Value Reference Range Interpretation Comments NA (test code = 140 mmol/L 135-145 1924796088) K (test code = 4.6 mmol/L 3.5-5 4348135779) CL (test code = 105 mmol/L 98-108 9709443538) CO2 TOTAL (test code = 29 mmol/L 23-31 4399005863) AGAP (test code = 2-16 3712786427) BUN (test code = 25 mg/dL 7-23 H 8016045567) GLUCOSE (test code = 145 mg/dL 70-110 H 9939271487) CREATININE (test code = 1.27 mg/dL 0.6-1.25 H 2863431938) TOTAL BILI (test code = 0.3 mg/dL 0.1-1.0 8709335343) CALCIUM (test code = 8.8 mg/dL 8.6-10.6 0407646966) T PROTEIN (test code = 6.9 g/dL 6.3-8.2 0253966739) ALBUMIN (test code = 3.9 g/dL 3.5-5 8084273139) ALK PHOS (test code = 102 U/L 34-122 4344893327) ALTv (test code = 16 U/L 5-50 1742-6) AST(SGOT) (test code = 25 U/L 13-40 8544757003) eGFR Calculation mL/min/1.73m2 (Non-) (test code = 8213459431) eGFR Calculation mL/min/1.73m2 () (test code = 5305525404) QUINTON (test code = QUINTON) Association of [...] tests). Lab Interpretation Abnormal (test code = 52283-4) [facility] WITH [id number] 03:41:00 Test Item Value Reference Range Interpretation [...] RDW-SD (test code = 47.8 fL 38.5-51.6 46888-2) RDW-CV (test code = 14.5 % 12.1-15.4 788-0) PLT (test code = See_Comment [Automated 777-3) message] The sy stem which generated this result transmitted reference range : 150 - 328 10*3/ ?L. The reference r tomasa was not used to interpret this result as normal/abnormal . MPV (test code = 10.6 fL 9.8-13 43951-7) NRBC/100 WBC (test See_Comment [Automat ed code = 7767983579) message] The system which generated this result transmitted reference range : 0.0 - 10.0 /100 WBCs. The refer ence range was not u sed to interpret th is result as normal/abnormal . NRBC x10^3 (test code <0.01 See_Comment [Auto mated = 1307638809) message] The s ystem which generated this result transmitted reference range : 10*3/?L. The reference range was not used to interpret this result as normal/abnormal . GRAN MAT (NEUT) % 72.6 % (test code = 770-8) IMM GRAN % (test code 0.40 % = 2527472150) LYMPH % (test code = 16.8 % 736-9) MONO % (test code = 7.9 % 5905-5) EOS % (test code = 1.7 % 713-8) BASO % (test code = 0.6 % 706-2) GRAN MAT x10^3(ANC) 7.12 10*3/uL 1.99-6.95 H (test code = 0046783969) IMM GRAN x10^3 (test 0.04 10*3/uL 0-0.06 code = 6659130457) LYMPH x10^3 (test code 1.65 10*3/uL 1.09-3.23 = 731-0) MONO x10^3 (test code 0.78 10*3/uL 0.36-1.02 = 742-7) EOS x10^3 (test code = 0.17 10*3/uL 0.06-0.53 711-2) BASO x10^3 (test code 0.06 10*3/uL 0.01-0.09 = 704-7) Lab Interpretation Abnormal (test code = 03720-5) [facility] [id number] 03:09:38 No acute cardiopulmonary abnormality. Preliminary Report Dictated by Resident: Fahad Osman MD., have reviewed this study and agree with the abovereport.EXAM: XR CHEST 2 VW HISTORY: chest pain COMPARISON: Chest x-ray 06/11/2015 FINDINGS: The lungs are clear. No focal consolidation, pleural effusion orpneumothorax is seen. The cardiac silhouette is normal in size. No acute bonyabnormality. [facility], Radiant Results Inft User - 09/18/2019 10:10 PM CDTEXAM: XR CHEST 2 VWHISTORY: chest pain COMPARISON: Chest x-ray 06/11/2015FINDINGS:The lungs are clear. No focal consolidation, pleural effusion orpneumothorax is seen. The cardiac silhouette is normal in size.No acute bony abnormality.IMPRESSIONNo acute cardiopulmonary abnormality.Preliminary Report Dictated by Resident: Fahad Deleon MD., have reviewed this study and agree with the abovereport.[facility]
[2022-10-18 09:30] LABS: SARS-CoV-2 Antigen Rapid Res Positive (Negative)
--- NOTE | 2022-10-18 09:40 | EDPHYS ---
Physician Documentation [facility] Name: Eliseo Oro Age: 82 yrs Sex: Male : 1940 Arrival Date: 10/18/2022 Time: 07:58 Bed 7 Private MD: ED Physician Milan Petit HPI: 10/18 08:27 This 82 yrs old Male presents to ER via Unassigned with complaints of Congestion. sb4 11:24 Onset: The symptoms/episode began/occurred 4 day(s) ago. Associated signs and symptoms: sb4 Pertinent positives: congestion, cough, earache, nasal discharge, sore throat, Pertinent negatives: chest pain, shortness of breath. Modifying factors: The patient symptoms are alleviated by nothing, the patient symptoms are aggravated by nothing. The patient has experienced similar episodes in the past, a few times. patient with FLS x 4 days. was recently on a cruise and prescribed a z pack. symptoms have not improved. also complains of chronic bilateral leg pain and a lesion on his scrotum x 3 weeks. Historical: - Allergies: 08:29 No Known Allergies; me1 - Home Meds: 08:29 gabapentin Oral [Active]; lisinopril Oral [Active]; clonidine [Active]; Zithromax Z-Ramón me1 250 mg Oral tablet as directed on dose pack [Active]; - PMHx: 08:29 Hypertension; knee pain; neck pain; Hypertensive disorder; neuropathy; me1 - PSHx: 08:29 Repair of inguinal hernia; repair of umbilical hernia; bone spur removal right foot; me1 - Immunization history:: Adult Immunizations up to date. - Social history:: Smoking status: Patient reports the use of cigarette tobacco products, smokes one-half pack cigarettes per day. ROS: 11:24 Cardiovascular: Negative for chest pain, palpitations, and edema. sb4 11:24 Constitutional: Positive for body aches, chills, fatigue, malaise. 11:24 ENT: Positive for ear pain, nasal discharge, rhinorrhea, sinus congestion, sore throat. 11:24 Respiratory: Positive for cough. 11:24 MS/extremity: Positive for pain, of the right leg and left leg. 11:24 Skin: Positive for lesions, of the groin. 11:24 All other systems are negative. Exam: 11:24 Constitutional: This is a well developed, well nourished patient who is awake, alert, sb4 and in no acute distress. Head/Face: Normocephalic, atraumatic. Eyes: Extra-ocular motions intact. Periorbital areas with no swelling, redness, or edema. 11:24 Cardiovascular: Regular rate and rhythm with a normal S1 and S2. Respiratory: Lungs have equal breath sounds bilaterally, clear to auscultation and percussion. No rales, rhonchi or wheezes noted. No increased work of breathing, no retractions or nasal flaring. Abdomen/GI: Soft, non-tender, no distension. MS/ Extremity: Pulses equal, no cyanosis. Neurovascular intact. Full, normal range of motion. Neuro: Awake and alert, GCS 15, oriented to person, place, time, and situation. Cranial nerves II-XII grossly intact. Motor strength 5/5 in all extremities. Sensory grossly intact. Cerebellar exam normal. Normal gait. 11:24 ENT: Ear canal(s): erythema, that is minimal, bilaterally, TM's: no acute changes, Posterior pharynx: Airway: normal, Tonsils: are normal in appearance, Uvula: normal, erythema, that is mild. 11:24 Skin: lesion(s), noted, and can be described as erythematous, raised, located on the groin, 0.5 cm lesion, similar appearance to insect bite. no discharge or surrounding erythema. located on scrotum. Vital Signs: 08:25 BP 179 / 94; Pulse 90; Resp 18; Temp 98.7(O); Pulse Ox 98% on R/A; Weight 106.59 kg; me1 Height 5 ft. 7 in. ; 08:25 Body Mass Index 36.81 (106.59 kg, 170.18 cm) me1 MDM: 08:12 Patient medically screened. sb4 11:24 Differential diagnosis: viral Infection, bacterial infection, URI, bronchitis, sb4 pneumonia. Data reviewed: vital signs, nurses notes, lab test result(s), and as a result, I will discharge patient. Test considered but Not performed: Labs: not indicated, symptoms most consistent with viral infection, nontoxic. X-ray: chest xray, not needed- no shob, chest pain, hypoxia. Care significantly affected by the following chronic conditions: Hypertension. Counseling: I had a detailed discussion with the patient and/or guardian regarding the historical points, exam findings, and any diagnostic results supporting the discharge/admit diagnosis, lab results, to return to the emergency department if symptoms worsen or persist or if there are any questions or concerns that arise at home. 10/18 08:26 Order name: SARS RAPID; Complete Time: 09:34 sb4 10/18 08:26 Order name: Flu; Complete Time: :34 sb4 10/18 08:26 Order name: Strep sb4 10/18 09:31 Order name: Throat Culture EDMS Administered Medications: No medications were administered Disposition: 11:07 Co-signature as Attending Physician, Milan Petit MD I reviewed the patient's care rt provided by the Advanced Practice Provider and agree with the diagnosis and treatment plan. Disposition Summary: 10/18/22 09:40 Discharge Ordered Location: Home sb4 Problem: new sb4 Symptoms: are unchanged sb4 Condition: Stable sb4 Diagnosis - SARS-associated coronavirus as the cause of diseases classified elsewhere sb4 Followup: sb4 - With: Emergency Department - When: As needed - Reason: Trouble breathing, Worsening of condition Discharge Instructions: - Discharge Summary Sheet sb4 - 10 Things You Can Do to Manage Your COVID-19 Symptoms at Home - [facility] (09/10/2020) sb4 - COVID-19: Quarantine and Isolation - [facility] (05/25/2021) sb4 - COVID-19: What to Do If You Are Sick - [facility] (05/17/2021) sb4 Forms: - Medication Reconciliation Form sb4 - Thank You Letter sb4 - Antibiotic Education sb4 - Prescription Opioid Use sb4 - Patient Portal Instructions sb4 - Leadership Thank You Letter sb4 Signatures: Dispatcher [employer] Rehana Reyez PA-C PABel sb4 Milan Petit MD MD rt Luz Leon RN RN me1
--- NOTE | 2022-10-18 09:40 | ER ---
Nurse's Notes [facility] Name: Eliseo Oro Age: 82 yrs Sex: Male : 1940 Arrival Date: 10/18/2022 Time: 07:58 Bed 7 Private MD: Diagnosis: SARS-associated coronavirus as the cause of diseases classified elsewhere Presentation: 10/18 08:25 Chief complaint: Patient states: Congestion, body aches, cough, fatigue since 10/14/22. me1 Was on a cruise that ended on that day. C/o "cyst to scrotum that started 3 weeks ago and has increased in size.". Chief complaint:. Coronavirus screen: Vaccine status: Patient reports receiving the 2nd dose of the covid vaccine. chills, congestion, cough unrelated to allergies, fatigue, headache, runny nose. Ebola Screen: No symptoms or risks identified at this time. Initial Sepsis Screen: Does the patient meet any 2 criteria? No. Patient's initial sepsis screen is negative. Does the patient have a suspected source of infection? Yes:. Risk Assessment: Do you want to hurt yourself or someone else? Patient reports no desire to harm self or others. Onset of symptoms was October 14, 2022. 08:25 Method Of Arrival: [place] [facility] [place] 08:25 Acuity: CAPRI 4 me1 Historical: - Allergies: 08:29 No Known Allergies; me1 - Home Meds: 08:29 gabapentin Oral [Active]; lisinopril Oral [Active]; clonidine [Active]; Zithromax Z-Ramón me1 250 mg Oral tablet as directed on dose pack [Active]; - PMHx: 08:29 Hypertension; knee pain; neck pain; Hypertensive disorder; neuropathy; me1 - PSHx: 08:29 Repair of inguinal hernia; repair of umbilical hernia; bone spur removal right foot; me1 - Immunization history:: Adult Immunizations up to date. - Social history:: Smoking status: Patient reports the use of cigarette tobacco products, smokes one-half pack cigarettes per day. Assessment: 10:03 Reassessment: Patient is alert, oriented x 3, equal unlabored respirations, skin aa5 warm/dry/pink. Vital Signs: 08:25 BP 179 / 94; Pulse 90; Resp 18; Temp 98.7(O); Pulse Ox 98% on R/A; Weight 106.59 kg; me1 Height 5 ft. 7 in. ; 08:25 Body Mass Index 36.81 (106.59 kg, 170.18 cm) me1 ED Course: 08:02 Patient arrived in ED. im 08:12 Rehana Johnston PA-C is PHCP. sb4 08:12 Milan Petit MD is Attending Physician. sb4 08:29 Triage completed. me1 08:29 Arm band placed on Patient placed in an exam room. me1 09:12 Strep Sent. iw 09:12 Flu Sent. iw 09:12 SARS RAPID Sent. iw 10:03 No provider procedures requiring assistance completed. Patient did not have IV access aa5 during this emergency room visit. Administered Medications: No medications were administered Medication: 10:03 VIS not applicable for this client. aa5 Outcome: 09:40 Discharge ordered by . sb4 10:03 Discharged to home ambulatory, with walker aa5 10:03 Condition: stable 10:03 Discharge instructions given to patient, Instructed on discharge instructions, follow up and referral plans. Demonstrated understanding of instructions, follow-up care. 10:05 Patient left the ED. aa5 Signatures: Justine Suresh RN RN Susy Friedman RN RN aa5 Rehana Johnston PA-C PA-C sb4 Gricelda Banuelos Luz Leon, RN RN me1 Corrections: (The following items were deleted from the chart) 10:13 10:05 Reassessment: Patient is alert, oriented x 3, equal unlabored respirations, skin aa5 warm/dry/pink. aa5
[2022-10-18 10:10] VITALS: BP 179/94; TEMP 98.7; O2SAT 98
== END 2022-10-18 10:05 | disposition home or self-care (01) ==
LOC: ER 07:58
DX: U07.1 COVID-19 (principal); I10 Essential (primary) hypertension
CPT/HCPCS: 36415; 87070; 87081; 87804; 87811